=== PATIENT | female | born 1960 | race Caucasian/White ===

== ENCOUNTER 2023-12-22 12:17 | Inpatient (IN) ==
--- NOTE | 2023-12-22 12:43 | Emergency Department Note ---
History of Present Illness General Chief complaint: Swelling/Edema to Extremity Stated complaint: HAND SWOLLEN Time Seen by Provider: 12/22/23 12:23 History of Present Illness NAME: DEVANTE SIFUENTES AGE: 63 SEX: F : 1960 ARRIVES VIA: Walk-In INFORMANT: Patient ED PROVIDER(S): CYNTHIA Rick, Izabella Walter MD The patient is a pleasant well-appearing 63-year-old female who arrives to the emergency department for evaluation of left hand swelling. She reports approximately 3 to 4 days ago the hand became severely swollen and painful. She does report she has been dealing with left thumb swelling for months, however it has not extended into the remainder of the hand until now. She reports she thought she had a foreign body, however had evaluation at urgent care was given an antibiotic and anti-inflammatory. She reports she took the course of these medications, with no relief. She states she did make a pinprick hole in the medial thumb, as she thought it was infected and was able to express some purulent drainage. She denies any weakness in the hand, however she cannot perform full range of motion due to the edema. She states no history of tick bites, or gout. She is neurovascularly intact. Home Medications Medication Instructions Recorded Confirmed Type cyclobenzaprine 10 mg tablet 10 mg PO TID PRN 04/04/23 11/29/23 History venlafaxine 75 mg capsule,extended 75 mg PO DAILY 04/04/23 11/29/23 History release 24 hr trazodone 50 mg tablet 50 mg PO HS #90 tabs 05/04/23 11/29/23 Rx omeprazole magnesium 20 mg 20 mg PO DAILY 06/07/23 11/29/23 History tablet,delayed release (Prilosec OTC) pravastatin 20 mg tablet 20 mg PO DAILY #90 tabs 06/21/23 11/29/23 Rx cholecalciferol (vitamin D3) 125 125 mcg PO DAILY 08/15/23 11/29/23 History mcg (5,000 unit) capsule betamethasone valerate 0.1 % 1 applic topical BID PRN skin 10/04/23 11/29/23 Rx topical cream irritation #15 grams fluticasone propionate 100 2 inh inhalation BID #60 ea 11/01/23 11/29/23 Rx mcg/actuation blister powder for inhalation cephalexin 500 mg capsule 500 mg PO 11/07/23 11/29/23 History naproxen 500 mg tablet 500 mg PO 11/07/23 11/29/23 History omeprazole 40 mg capsule,delayed 40 mg PO DAILY #90 caps 11/24/23 11/29/23 Rx release Allergies Allergy/AdvReac Type Severity Reaction Status Date / Time rosuvastatin AdvReac Intermediate Muscle Pain Verified 11/29/23 10:48 Past Med/Surg History Problem List (Updated 12/22/23 @ 15:55 by CYNTHIA Phan) Infectious tenosynovitis (Acute) Hyperlipidemia Vocal cord polyps Tear of right biceps muscle Seasonal allergies Insomnia Anxiety Raynaud's disease, idiopathic GERD without esophagitis Tobacco dependence Hoarse voice quality Surgical History History of vocal cord polypectomy Hx of wisdom tooth extraction Hx of total hysterectomy with removal of both tubes and ovaries Family History Mother Breast cancer Uncle Prostate cancer Father Diabetes Lung cancer Denies family history of Ovarian cancer Myocardial infarction Colorectal cancer Social History Smoking Status: Current every day smoker Tobacco Type: Cigarettes Age Started Using Tobacco: 32; packs per day: 0.5; Second Hand Exposure: Yes; Hx Alcohol Use: Yes Alcohol Intake Frequency: Monthly or Less Hx Substance Use: No Preferred Language: Ivorian Communication Ability: Effective Visual Impairment: No Limitations Hearing Ability: Normal Vessel Crew Member Required: No Beliefs That Will Affect Care: None marital status: Current Living Situation: Spouse current occupational status: retired How many Children do You have: 2 Feels Safe at Home: Yes Childhood Exposure to Second-Hand Smoke: Yes Diet: regular Diet Comment: regular caffeine: Yes during the past year weight has: remained stable Dental Care, Regularly: Yes Physical Activity Frequency: Daily Seatbelt Use: always Sunscreen Use: Yes Physical Exam Vital Signs Vital Signs - 24 hr 12/22/23 12:18 12/22/23 12:18 Temperature 36.6 C Temperature Source Oral Pulse Rate 74 Respiratory Rate 18 18 Blood Pressure 131/69 Blood Pressure Mean 89 Pulse Oximetry 98 Sepsis Recent Fever Within 48 Hours No Sepsis New/Unexplained Change in Mental Status N/A Sepsis Action Taken by Nursing No Action Required VITALS: Vitals are noted on the nurse's note and reviewed by myself. Vital signs stable. GENERAL: 63-year-old female, in no acute distress, nondiaphoretic, well- developed well-nourished. SKIN: Edema with slight erythema and warmth present to he left hand extending from tips of digits to proximal forearm. No streaking present, no obvious foreign body. HEART: Regular rate and rhythm without murmurs gallops or rubs. LUNGS: Clear to auscultation bilaterally without wheezes, rales or rhonchi. No retractions or accessory muscle use. ABDOMEN: Positive bowel sounds x 4. Soft, nontender, without masses or organomegaly. Stinson sign negative. No guarding or rebound tenderness. MUSCULOSKELETAL: Edema present to the left fingers, hand, NEURO: Patient was alert and oriented to person place and time. No focal neurological deficits. Course Administered Medications Vancomycin HCl 1,250 mg/ (Sodium Chloride) 525 mls @ 200 mls/hr IV NOW ONE Stop: 12/22/23 16:03 Last Admin: 12/22/23 13:54 Dose: 200 mls/hr Documented By: DAVID Discontinued Medications Sodium Chloride (Nss) 1,000 mls @ 999 mls/hr IV .Q1H1M ONE Stop: 12/22/23 13:41 Last Infusion: 12/22/23 13:46 Dose: Infused Documented By: Admin: 12/22/23 12:52 Dose: 999 mls/hr Documented By: DAVID Cefepime HCl (Maxipime) 2,000 mg in 20 mls @ 5 mls/min IV NOW STA; Protocol Stop: 12/22/23 13:29 Last Admin: 12/22/23 13:31 Dose: 5 mls/min Documented By: DAVID Ioversol (Optiray 320 100ml) 92 ml IV ONCE ONE Stop: 12/22/23 14:48 Last Admin: 12/22/23 14:48 Dose: 92 ml Documented By: GIULIA Ketorolac Tromethamine (Ketorolac Tromethamine 15 Mg/Ml Vial) 10 mg IV NOW ONE Stop: 12/22/23 12:42 Last Admin: 12/22/23 12:52 Dose: 10 mg Documented By: [facility] Medical Decision Making Differential Diagnosis Fracture, dislocation, contusion, ligamentous injury, neurovascular, compartment syndrome, infection, foreign body, as well as other pathologies. Medical Records Attestation: I reviewed the patient's medical records. Home Medications Current Medication List: was personally reviewed by me Laboratory Data Attestation: I reviewed the patient's lab results. CBC shows no leukocytosis, with a stable hemoglobin and hematocrit, CMP is unremarkable, CRP 5.54, ESR 47, Lyme negative, uric acid negative. 12/22/23 12:50 12/22/23 12:50 Lab Results 12/22/23 Range/Units 12:50 WBC 10.62 (4.8-10.8) K/ul RBC 4.67 (4.20-5.40) M/uL Hgb 13.7 (12.0-16.0) g/dl Hct 41.3 (37.0-47.0) % MCV 88.4 (80.0-100.0) fL MCH 29.3 (25.0-34.0) pg MCHC 33.2 (32.0-36.0) g/dL RDW Std Deviation 42.2 (36.4-46.3) fL RDW Coeff of Adal 13.1 (11.5-14.5) % Plt Count 367 (130-400) K/uL MPV 8.9 L (9.4-12.4) fL Immature Gran % (Auto) 0.3 % Neut % (Auto) 71.3 % Lymph % (Auto) 19.6 % Bledsoe % (Auto) 6.9 % Eos % (Auto) 1.5 % Baso % (Auto) 0.4 % Neut # (Auto) 7.58 H (1.40-6.50) K/uL Lymph # (Auto) 2.08 (1.20-3.40) K/uL Bledsoe # (Auto) 0.73 H (0.11-0.59) K/uL Eos # (Auto) 0.16 (0.00-0.50) K/uL Baso # (Auto) 0.04 (0.00-0.20) K/uL Immature Gran # (Auto) 0.03 (0.01-0.20) K/uL ESR 47 H (0-30) mm/hr Sodium 139 (136-145) mmol/L Potassium 4.3 (3.5-5.1) mmol/L Chloride 104 (98-107) mmol/L Carbon Dioxide 30 (21-32) mmol/L Anion Gap 5 (3-11) BUN 14 (6-23) mg/dl Creatinine 0.73 (0.6-1.2) mg/dl Est Cr Clr Drug Dosing 72.8 ml/min Est GFR ( Amer) 100.2 ml/min Est GFR (Non-Af Amer) 86.4 ml/min BUN/Creatinine Ratio 19.2 (10-20) Glucose 93 (70-99(Fasting)) mg/dl Uric Acid 2.9 (2.6-7.2) mg/dl Calcium 9.9 (8.6-10.3) mg/dl Total Bilirubin 0.4 (0.2-1.0) mg/dl AST 14 (13-39) U/L ALT 13 (7-52) U/L Alkaline Phosphatase 83 (34-104) U/L C-Reactive Protein 5.54 H (0-0.5) mg/dl Total Protein 7.5 (6.0-8.3) gm/dl Albumin 4.4 (3.4-5.0) gm/dl Globulin 3.1 (2.5-4.0) gm/dl Albumin/Globulin Ratio 1.4 (0.9-2) Lyme Disease Screen Negative (Negative) Imaging Data Attestation: I personally reviewed and interpreted this imaging study as follows: My Impression: Initial x-ray interpretation per myself shows soft tissue swelling with no signs of foreign body or bony abnormality. Will await formal radiology report. Radiologist's Impression: Hand X-Ray 12/22/23 12:39 XR hand LT min 3V routine HISTORY: 63 years-old Female edema acute pain and swelling of the left hand COMPARISON: CT of same day TECHNIQUE: 4 views of the left and FINDINGS: There is moderate diffuse soft tissue swelling. Demineralized appearance of the bones with multifocal osteoarthritis which is mostly mild to moderate. No acute fracture, dislocation, osseous erosion or opaque foreign body. IMPRESSION: Soft tissue swelling without acute osseous abnormality. ACT 112: Negative or not required by law. The above report was generated using voice recognition software. It may contain grammatical, syntax or spelling errors. Electronically signed by: Richard Gan M.D. 12/22/2023 3:[address] 12/22/23 13:59 CT hand LT w con CLINICAL HISTORY: infection TECHNIQUE: Multisequence, multiplanar MR images of the left hand were obtained prior to and following administration of gadolinium contrast. COMPARISON: Comparison is made to radiographs 12/22/2023 FINDINGS: No evidence of acute fracture no erosions are seen.. No joint effusion is seen. Prominent joint fluid and enhancement is seen in the flexor tendons of the first digit, prominent fluid is also seen along the flexor tendons extending to the level of the carpal tunnel, but with no definite rim enhancement. There is a rim-enhancing cyst in the wrist measuring approximately 28 x 13 mm lying just deep to the carpal tunnel. IMPRESSION: Findings compatible with tenosynovitis, possibly infectious, of the carpal tunnel extending to the first digit flexor tendon sheath. There may be a small abscess versus outpouching of physiologic fluid deep to the carpal tunnel. Otherwise no drainable fluid collection is seen. ACT 112: Negative or not required by law. Electronically signed by: Ruben Renee M.D. 12/22/2023 3:08 PM Blood Pressure Blood Pressure Findings: Normal blood pressure MDM Narrative The patient is a pleasant well-appearing 63-year-old female who arrives to the emergency department for evaluation of the above-stated complaint. Upon examination the patient has an acute onset edema with erythema warmth of the left hand after battling swelling of the left thumb for a few months. She reports she had failed outpatient antibiotic treatment from urgent care from a few months ago. She states the hand began over the last few days, now she is having a difficult time with hide trimmer, and pain. She denies any fever, chest pain, shortness of breath. A saline lock was established, CBC, CMP, ESR, CRP, Lyme, uric acid were obtained. CBC shows no leukocytosis, with a stable hemoglobin and hematocrit, CMP is unremarkable, ESR is elevated at 47, CRP elevated at 5.54, Lyme negative, uric acid negative. X-ray imaging of the hand was performed which per my initial interpretation showed no foreign body, with soft tissue edema, no sign of osteomyelitis. CT imaging with IV contrast showed tenosynovitis, possibly infectious, of the carpal tunnel extending to the first digit flexor tendon sheath. There may also be a small abscess versus outpouching of physiological fluid deep to the carpal tunnel. Orthopedic consult with Dr. Rose was obtained who recommended admission to medicine for IV antibiotics. He requested an MRI of the hand and wrist, and agreed to evaluate the patient. Case management was contacted to facilitate admission to the hospital. Dr. Rai, from the [facility] hospitalist group agreed to accept the patient for admission. Please refer to his documentation for further patient workup and care. The patient's case was discussed with Dr. Walter, who agreed with my evaluation and treatment plan. Impression & Plan Infectious tenosynovitis Discharge Plan Visit Data Chief Complaint: Swelling/Edema to Extremity Stated Complaint: HAND SWOLLEN ED Provider: Izabella Walter ED Midlevel Provider: Mami Yeager Discharge Problem: Infectious tenosynovitis Forms Stand Alone Forms: My [facility] Prescriptions Prescriptions: No Action trazodone 50 mg tablet 50 mg PO HS Qty: 90 2RF omeprazole magnesium [Prilosec OTC] 20 mg tablet,delayed release (DR/EC) 20 mg PO DAILY pravastatin 20 mg tablet 20 mg PO DAILY Qty: 90 1RF omeprazole 40 mg capsule,delayed release(DR/EC) 40 mg PO DAILY Qty: 90 2RF naproxen 500 mg tablet 500 mg PO cephalexin 500 mg capsule 500 mg PO venlafaxine 75 mg capsule,extended release 24hr 75 mg PO DAILY cyclobenzaprine 10 mg tablet 10 mg PO TID PRN fluticasone propionate 100 mcg/actuation blister with device 2 inh inhalation BID Qty: 60 2RF cholecalciferol (vitamin D3) 125 mcg (5,000 unit) capsule 125 mcg PO DAILY betamethasone valerate 0.1 % cream 1 applic topical BID PRN (Reason: skin irritation) Qty: 15 2RF Referrals Referrals: Christian Adams CRNP [Primary Care Provider] -
[2023-12-22] MEDS: KETOROLAC TROMETHAMINE 15 MG/ML VIAL IV ONE (12:52)
[2023-12-22] MEDS: SODIUM CHLORIDE 0.9% 1,000 ML IV ONE (12:52)
[2023-12-22 13:18] LABS: Basophils # (auto) 0.04 K/uL (0.00-0.20); Basophils % (auto) 0.4 %; Eosinophils # (auto) 0.16 K/uL (0.00-0.50); Eosinophils % (auto) 1.5 %; Hematocrit (blood only) 41.3 % (37.0-47.0); Hemoglobin 13.7 g/dl (12.0-16.0); Immature Granulocytes # (auto) 0.03 K/uL (0.01-0.20); Immature Granulocytes % (auto) 0.3 %; Lymphocytes # (auto) 2.08 K/uL (1.20-3.40); Lymphocytes % (auto) 19.6 %; Mean Corpuscular Hemoglobin 29.3 pg (25.0-34.0); Mean Corpuscular Hgb Conc 33.2 g/dL (32.0-36.0); Mean Corpuscular Volume 88.4 fL (80.0-100.0); Mean Platelet Volume 8.9 fL (9.4-12.4); Monocytes # (auto) 0.73 K/uL (0.11-0.59); Monocytes % (auto) 6.9 %; Neutrophils # (auto) 7.58 K/uL (1.40-6.50); Neutrophils % (auto) 71.3 %; Platelet Count 367 K/uL (130-400); RDW Coefficient of Variation 13.1 % (11.5-14.5); RDW Standard Deviation 42.2 fL (36.4-46.3); Red Blood Count 4.67 M/uL (4.20-5.40); White Blood Count 10.62 K/ul (4.8-10.8)
[2023-12-22] MEDS ORDERED: VANCOMYCIN CONSULT ACTIVE PRN ×2 (13:26→18:07)
[2023-12-22] MEDS: CEFEPIME 2,000 MG/20 ML VIAL IV STA (13:31)
[2023-12-22 13:33] LABS: Albumin Globulin Ratio 1.4 (0.9-2); Albumin Level 4.4 gm/dl (3.4-5.0); BUN Creatinine Ratio 19.2 (10-20); Bilirubin,Total 0.4 mg/dl (0.2-1.0); C Reactive Protein 5.54 mg/dl (0-0.5); Calcium 9.9 mg/dl (8.6-10.3); Creatinine Clr Calc Pharmacy 72.8 ml/min; Est GFR (African American) 100.2 ml/min; Est GFR (Non-African American) 86.4 ml/min; Globulin 3.1 gm/dl (2.5-4.0); Potassium 4.3 mmol/L (3.5-5.1); Total Protein 7.5 gm/dl (6.0-8.3); Uric Acid 2.9 mg/dl (2.6-7.2)
[2023-12-22] MEDS: VANCOMYCIN HCL 1,250 MG in SODIUM CHLORIDE 0.9% 500 ML IV ONE (13:54)
--- NOTE | 2023-12-22 14:09 | Emergency Department Note ---
ED Visit Note I have personally seen and evaluated the patient with the GLASS DRILLER. I agree with the diagnosis and management decisions and have been personally involved in the case. Patient's left hand is concerning for a faint line of the left thumb with tracking cellulitis to the mid forearm. IV antibiotics have been initiated, CT imaging advised. Please see CYNTHIA Rick's notes for further details of the history, physical and visit. .
[2023-12-22] MEDS: OPTIRAY 320 100ml IV ONE (14:48)
--- NOTE | 2023-12-22 15:11 | CT Scan Report ---
CT hand LT w con CLINICAL HISTORY: infection TECHNIQUE: Multisequence, multiplanar MR images of the left hand were obtained prior to and followi ng administration of gadolinium contrast. COMPARISON: Comparison is made to radiographs 12/22/2023 FINDINGS: No evidence of acute fracture no erosions are seen.. No joint effusion is seen. Prominent joint fluid and enhancement is seen in the flexor tendons of the first digit, prominent fluid is also seen along the flexor tendons extending to the level of the carpal tunnel, but with no definite rim enhancement . There is a rim-enhancing cyst in the wrist measuring approximately 28 x 13 mm lying just deep to th e carpal tunnel. IMPRESSION: Findings compatible with tenosynovitis, possibly infectious, of the carpal tunnel extending to the fi rst digit flexor tendon sheath. There may be a small abscess versus outpouching of physiologic fluid deep to the carpal tunnel. Otherwise no drainable fluid collection is seen. ACT 112: Negative or not required by law. Electronically signed by: Ruben Renee M.D. 12/22/2023 3:08 PM
--- NOTE | 2023-12-22 15:17 | XRay Report ---
XR hand LT min 3V routine HISTORY: 63 years-old Female edema acute pain and swelling of the left hand COMPARISON: CT of same day TECHNIQUE: 4 views of the left and FINDINGS: There is moderate diffuse soft tissue swelling. Demineralized appearance of the bones with multifocal osteoarthritis which is mostly mild to moderate. No acute fracture, dislocation, osseous erosion or opaque foreign body. IMPRESSION: Soft tissue swelling without acute osseous abnormality. ACT 112: Negative or not required by law. The above report was generated using voice recognition software. It may contain grammatical, syntax o r spelling errors. Electronically signed by: Richard Gan M.D. 12/22/2023 3:15 PM
--- NOTE | 2023-12-22 16:31 | History & Physical Report ---
Date of Service December 22, 2023 Assessment & Plan (1) Infectious tenosynovitis: Plan: Patient presented to ED on 12/21 with complaint of left hand pain and edema. Patient previously treated outpatient with dose of keflex about 1 month ago with no improvement of symptoms. Concern for possible Foreign body. -reviewed CT scan of hand 12/21: findings consistent with tenosynovitis, possibly infectious of carpal tunnel extending to first digit flexor tendon sheath. small abscess vs outpouching of physiologic fluid deep to carpal tunnel. no drainable fluid collection seen. -reviewed XR left hand 12/21: Soft tissue swelling without acute osseous abnormality. -reviewed CBC: WBC WNL -reviewed BMP: electrolytes, kidney function WNL -reviewed inflammatory markers: CRP elevated at 5.54, ESR 47 -Continue Vancomycin q8h -Continue Cefepime 2g q8h (expanded due to concern for foreign body and pseudomonas risk) -1st line pain medication: Tylenol 500mg q4h -2nd line pain medication: Toradol 10mg q 6h -3rd line pain medication/breakthrough pain: morphine 1mg q 4h -orthopedics consulted -continue antibiotics -obtain MRI of left wrist/hand -NPO after midnight for possible surgery in AM -RCRI class I low risk -LR fluids starting at 9am on 12/22 AM CBC, BMP, CRP Plan Chronic conditions: -hyperlipidemia: continue statin -insomnia: continue trazodone -anxiety: continue venlafaxine -GERD: continue PPI -seasonal allergies: inhaler prn Disposition: admit to med-surg diet: NPO at midnight DVT prophylaxis: hold until orthopedic assessment in AM History of Present Illness Primary Care Provider: CYNTHIA Shetty This is a 63 year old female with past medical history of insomnia, anxiety, GERD, vocal cord polyps, hyperlipidemia who presented to the ED on 12/21 with complaint of left hand swelling. Patient has been having issues with her left hand for over a month now. She originally went to urgent care and was given a prescription for Keflex and told to take anti-inflammatories. She completed this and noted no improvement in her symptoms. She also states about 6 weeks ago she noticed a fluid collection on her thumb and poked it with a needle. Purulent material was drained and the puncture wound closed. She denies any cuts or scrapes to the left hand recently. She is unsure if she has a foreign body inside or not. She states she has a history of cellulitis on her right hand in the past. She denies fevers or chills. She notes pain with movement of her left hand and with flexion/extension of her fingers. She was in no discomfort at time of encounter. She denied chest pain, shortness of breath. Admitted to occasional nausea but denied vomiting. She denied any previous cardiac or pulmonary conditions. She reports she was at the hospital today for her CT scan of lungs due to smoking. She continues to smoke 3/4 packs a day. Allergies Allergy/AdvReac Type Severity Reaction Status Date / Time rosuvastatin AdvReac Intermediate Muscle Pain Verified 12/22/23 16:42 Home Medications Medication Instructions Recorded Confirmed Type cyclobenzaprine 10 mg tablet 10 mg PO TID PRN pain/muscle spasms 04/04/23 12/22/23 History venlafaxine 75 mg capsule,extended 75 mg PO DAILY 04/04/23 12/22/23 History release 24 hr trazodone 50 mg tablet 50 mg PO HS #90 tabs 05/04/23 12/22/23 Rx pravastatin 20 mg tablet 20 mg PO DAILY #90 tabs 06/21/23 12/22/23 Rx cholecalciferol (vitamin D3) 125 125 mcg PO DAILY 08/15/23 12/22/23 History mcg (5,000 unit) capsule betamethasone valerate 0.1 % 1 applic topical BID PRN skin 10/04/23 12/22/23 Rx topical cream irritation #15 grams fluticasone propionate 100 2 inh inhalation BID #60 ea 11/01/23 12/22/23 Rx mcg/actuation blister powder for inhalation omeprazole 40 mg capsule,delayed 40 mg PO DAILY #90 caps 11/24/23 12/22/23 Rx release coQ10 (ubiquinol) 100 mg capsule 100 mg PO HS 12/22/23 12/22/23 History Past Med/Surg History Problem List (Updated 12/22/23 @ 15:55 by CYNTHIA Phan) Infectious tenosynovitis (Acute) Hyperlipidemia Vocal cord polyps Tear of right biceps muscle Seasonal allergies Insomnia Anxiety Raynaud's disease, idiopathic GERD without esophagitis Tobacco dependence Hoarse voice quality Surgical History History of vocal cord polypectomy Hx of wisdom tooth extraction Hx of total hysterectomy with removal of both tubes and ovaries Family History Mother Breast cancer Uncle Prostate cancer Father Diabetes Lung cancer Denies family history of Ovarian cancer Myocardial infarction Colorectal cancer Social History Smoking Status: Current every day smoker Tobacco Type: Cigarettes Age Started Using Tobacco: 32; packs per day: 0.5; Second Hand Exposure: Yes; Hx Alcohol Use: Yes Alcohol Intake Frequency: Monthly or Less Hx Substance Use: No Preferred Language: Yakut Communication Ability: Effective Visual Impairment: No Limitations Hearing Ability: Normal Guitar Technician Required: No Beliefs That Will Affect Care: None marital status: Current Living Situation: Spouse current occupational status: retired How many Children do You have: 2 Feels Safe at Home: Yes Childhood Exposure to Second-Hand Smoke: Yes Diet: regular Diet Comment: regular caffeine: Yes during the past year weight has: remained stable Dental Care, Regularly: Yes Physical Activity Frequency: Daily Seatbelt Use: always Sunscreen Use: Yes Physical Exam 2 Constitutional: WD/WN, vitals as above Eyes: PERRL, conjunctivae normal, anicteric sclerae Respiratory: normal respiratory effort, lungs clear to auscultation Cardiovascular: RRR, no murmur, no edema Skin: left hand edema. warm and tender to touch. Results & Data Results & Data Vital Signs (Past 12 Hours) Vital Signs Temp Pulse Resp BP Pulse Ox 12/22/23 12:18 18 12/22/23 12:18 36.6 C 74 18 131/69 98 Laboratory Results 12/22/23 12:50 12/22/23 12:50 Diagnostic Findings Hand X-Ray 12/22/23 12:39 IMPRESSION: Soft tissue swelling without acute osseous abnormality. Electronically signed by: Richard Gan M.D. 12/22/2023 3:[address] 12/22/23 13:59 IMPRESSION: Findings compatible with tenosynovitis, possibly infectious, of the carpal tunnel extending to the first digit flexor tendon sheath. There may be a small abscess versus outpouching of physiologic fluid deep to the carpal tunnel. Otherwise no drainable fluid collection is seen. Electronically signed by: Ruben Renee M.D. 12/22/2023 3:08 PM Supervising Physician Co-Signing Physician Notes Patient seen and examined, chart reviewed, case discussed with Veronica Nole PA-C and I agree with the assessment and plan as above except as otherwise noted Labs and images reviewed Yaniv is a 63-year-old female with past medical history of Raynaud's, GERD, tobacco use, hyperlipidemia who presents with a worsening left hand infection suspicious for tenosynovitis. Patient initially had symptoms over 1 month ago for some thumb swelling? Foreign body at that time. Patient took an antibiotic and Aleve. Did subsequently have an area that opened and drained purulent material and then closed over. In the last 3 to 4 days and has become much more swollen and painful. Swelling has spread from the thumb into the remainder of her hand. On ER evaluation she does not have leukocytosis. CRP is elevated at 5.54, this is trended. CThand shows suspected tenosynovitis of the carpal tunnel extending into the first digit flexor tendon sheath? Small abscess versus outpouching of physiologic fluid deep to the carpal tunnel. Dr. Rose orthopedics was consulted. Recommended admission and antibiotic treatment overnight, and likely progression to the OR tomorrow morning for incision/drainage. Patient received cefepime/vancomycin in the emergency department.Seen at bedside. Swelling is present throughout the dorsal and palmar left hand and notably on the palmar aspect of the left thumb. She has mild pain on active flexion of the first through third digits, much worse pain on attempted active extension or passive extension of the first through third digits. Lungs are clear, heart rate is regular. Radial pulses intact. MRI of the hand and wrist with and without contrast ordered. Patient thinks that this may have started with a foreign body which got into her thumb. Has not had a tetanus booster to her knowledge in the last 10 years. Did not receive any tetanus booster initially. Given potential foreign body, recommended this to which patient is agreeable. Will expand typical Rocephin/vancomycin coverage to cefepime/vancomycin due to increased risk of Pseudomonas with foreign body exposure/infection. N.p.o. at midnight. Agree with above. Perioperative risk: RCRI class I low risk. Recommend proceeding to surgery as indicated. No modifiable risk factors. No underlying cardiac disease/anginal equivalents. Is able to go up stairs and walk around the block without any limiting chest pain or dyspnea. PG Care Time/CCT Total # of Minutes Spent Total Time Spent with Patient: Total time spent is greater than 50% in coordination of care (as documented) at patient's floor/unit and/or counseling patient: Coding Level of Care Code 91372 INT INP/OBS CARE 3/75MIN Diagnoses Infectious tenosynovitis M65.10
[2023-12-22] MEDS ORDERED: MoRPHine SULFATE 2 MG/ML CARP IV PRN (18:07)
[2023-12-22] MEDS: LORazepam 0.5 MG TAB PO STA (19:50)
[2023-12-22] MEDS: GADOBUTROL 65ML VIAL IV ONE (21:02)
[2023-12-22] MEDS ORDERED: VANCOMYCIN HCL 1,000 MG in SODIUM CHLORIDE 0.9% 500 ML IV SCH (21:30)
[2023-12-22] MEDS: traZODone HCL 50 MG TAB PO SCH (21:35)
[2023-12-22] MEDS: DIPHTHERIA/TETANUS TOX ADSORB VACCINE (Td) 0.5 ML SYR/VIAL IM ONE (21:35)
[2023-12-22] MEDS: VANCOMYCIN HCL 1,000 MG in SODIUM CHLORIDE 0.9% 250 ML IV SCH (21:40)
[2023-12-22] MEDS: CEFEPIME 2,000 MG in SYRINGE 0 ML IV SCH (21:40)
[2023-12-23] MEDS: KETOROLAC TROMETHAMINE 15 MG/ML VIAL IV PRN (02:15)
--- NOTE | 2023-12-23 05:15 | Magnetic Resonance Report ---
Exam(s): MRI LEFT WRIST W/WO Contrast IV Amt: 6.7CC GADAVIST EXAM: MR Left Upper Extremity Without and With Intravenous Contrast, Wrist CLINICAL HISTORY: Reason for exam: tenosynovitis. TECHNIQUE: Multiplanar magnetic resonance images of the left wrist without and with intravenous contrast. CONTRAST: Patient received 6.7CC GADAVIST of IV contrast COMPARISON: No relevant prior studies available. FINDINGS: LIGAMENTS: Scapholunate: Unremarkable. Lunotriquetral: Unremarkable. TENDONS: Flexor compartments: Unremarkable. Extensor compartments: Unremarkable. NERVES: Median: Moderate-severe synovitis throughout the carpal tunnel, correlate for carpal tunnel syndrome. Mild increased signal intensity in the median nerve. Ulnar: Unremarkable. Muscles: Unremarkable. Fluid: Unremarkable. No joint effusion. Cartilage: Unremarkable. Triangular fibrocartilage complex: Unremarkable. Bones/joints: Unremarkable. No acute fracture. Soft tissues: Mild-moderate subcutaneous edema along the dorsal, ulnar aspect of the wrist. Correlate for soft tissue contusion or bruising in this location. IMPRESSION: 1. Mild-moderate subcutaneous edema along the dorsal, ulnar aspect of the wrist. Correlate for soft tissue contusion or bruising in this location. 2. Moderate-severe synovitis throughout the carpal tunnel, correlate for carpal tunnel syndrome. Mild increased signal intensity in the median nerve. Electronically signed by: Chris Whelan MD 12/23/23 05:14 AM
[2023-12-23] MEDS ORDERED: MIDAZOLAM HCL 1 MG/ML 2ML VIAL ONE (06:45)
[2023-12-23] MEDS ORDERED: KETOROLAC 30 MG/ML VIAL ONE (06:45)
[2023-12-23] MEDS ORDERED: DEXAMETHASONE SOD INJ 4 MG/ML VIAL ONE (06:45)
[2023-12-23] MEDS ORDERED: fentaNYL citrate PF 100 MCG/2 ML VIAL ONE (06:45)
[2023-12-23] MEDS ORDERED: LIDOCAINE 2% 2 ML VIAL/AMP(20MG/ML) INFIL ONE (06:45)
[2023-12-23] MEDS ORDERED: ONDANSETRON INJ 2 MG/ML 2 ML VIAL ONE (06:45)
[2023-12-23] MEDS ORDERED: PROPOFOL IV EMULSION 10 MG/ML 20 ML VIAL IV ONE (06:45)
--- NOTE | 2023-12-23 06:54 | Anesthesiology Consultation ---
Date of Service December 23, 2023 Assessment & Plan Chart Review Chart Review: data entry technician initiated History Surgery Operation Date: 12/23/23 09:00 Proposed Procedures p Incision and Drainage Extremity - Wong Anil Rose MD Height/Weight Height: 5 ft 4 in Weight: 68 kg Allergies Allergy/AdvReac Type Severity Reaction Status Date / Time rosuvastatin AdvReac Intermediate Muscle Pain Verified 12/22/23 16:42 Medications Home Medications Medication Instructions Recorded Confirmed Last Taken cyclobenzaprine 10 mg tablet 10 mg PO TID PRN pain/muscle spasms 04/04/23 12/22/23 Unknown venlafaxine 75 mg capsule,extended 75 mg PO DAILY 04/04/23 12/22/23 12/22/23 release 24 hr trazodone 50 mg tablet 50 mg PO HS #90 tabs 05/04/23 12/22/23 12/21/23 pravastatin 20 mg tablet 20 mg PO DAILY #90 tabs 06/21/23 12/22/23 12/21/23 cholecalciferol (vitamin D3) 125 125 mcg PO DAILY 08/15/23 12/22/23 12/22/23 mcg (5,000 unit) capsule betamethasone valerate 0.1 % 1 applic topical BID PRN skin 10/04/23 12/22/23 Unknown topical cream irritation #15 grams fluticasone propionate 100 2 inh inhalation BID #60 ea 11/01/23 12/22/23 12/21/23 mcg/actuation blister powder for inhalation omeprazole 40 mg capsule,delayed 40 mg PO DAILY #90 caps 11/24/23 12/22/23 12/22/23 release coQ10 (ubiquinol) 100 mg capsule 100 mg PO HS 12/22/23 12/22/23 12/21/23 Active Medications Generic Name Dose Route Start Last Admin Trade Name Freq PRN Reason Stop Dose Admin Cefepime HCl 2,000 mg/ Syringe 20 mls @ 5 mls/min 12/22/23 21:00 12/23/23 06:00 IV 12/29/23 20:59 5 mls/min Q8H DARÍO Administration Protocol Vancomycin HCl 1,000 mg/ 270 mls @ 200 mls/hr 12/22/23 22:00 12/22/23 23:01 Sodium Chloride IV 12/29/23 21:59 Infused Q12H DARÍO Infusion Ketorolac Tromethamine 10 mg 12/22/23 18:07 12/23/23 02:15 Ketorolac Tromethamine 15 Mg/Ml Vial IV 12/27/23 18:06 10 mg Q6H PRN Administration Moderate Pain (Scale 4, 5, 6) Trazodone HCl 50 mg 12/22/23 21:00 12/22/23 21:35 Trazodone Hcl 50 Mg Tab PO 01/21/24 20:59 50 mg HS DARÍO Administration Past Family History Family History Mother Breast cancer Uncle Prostate cancer Father Diabetes Lung cancer Denies family history of Ovarian cancer Myocardial infarction Colorectal cancer Past Surgical History Surgical History History of vocal cord polypectomy Hx of wisdom tooth extraction Hx of total hysterectomy with removal of both tubes and ovaries Social History Smoking Status: Current every day smoker Smoking cigarettes per day: 3/4 a pack Do You Dip or Chew Tobacco: No Hx Alcohol Use: Yes Alcohol type: beer alcohol intake frequency: a few times a week Hx Substance Use: No Physical Exam Vital Signs Last Vital Signs Temp 98.2 F 12/22/23 21:33 Pulse 67 12/22/23 21:33 Resp 17 12/22/23 21:33 BP 130/73 12/22/23 21:33 Pulse Ox 96 12/22/23 21:33 O2 Del Method Room Air 12/22/23 21:33
[2023-12-23 07:02] LABS: Basophils # (auto) 0.06 K/uL (0.00-0.20); Basophils % (auto) 0.6 %; Eosinophils # (auto) 0.19 K/uL (0.00-0.50); Eosinophils % (auto) 1.8 %; Hematocrit (blood only) 36.2 % (37.0-47.0); Hemoglobin 12.2 g/dl (12.0-16.0); Immature Granulocytes # (auto) 0.03 K/uL (0.01-0.20); Immature Granulocytes % (auto) 0.3 %; Lymphocytes # (auto) 2.13 K/uL (1.20-3.40); Lymphocytes % (auto) 19.9 %; Mean Corpuscular Hemoglobin 29.7 pg (25.0-34.0); Mean Corpuscular Hgb Conc 33.7 g/dL (32.0-36.0); Mean Corpuscular Volume 88.1 fL (80.0-100.0); Monocytes # (auto) 0.81 K/uL (0.11-0.59); Monocytes % (auto) 7.6 %; Neutrophils # (auto) 7.49 K/uL (1.40-6.50); Neutrophils % (auto) 69.8 %; Platelet Count 326 K/uL (130-400); RDW Coefficient of Variation 12.7 % (11.5-14.5); RDW Standard Deviation 40.9 fL (36.4-46.3); Red Blood Count 4.11 M/uL (4.20-5.40); White Blood Count 10.71 K/ul (4.8-10.8)
[2023-12-23 07:39] LABS: BUN Creatinine Ratio 19.5 (10-20); C Reactive Protein 5.54 mg/dl (0-0.5); Est GFR (African American) 93.9 ml/min
--- NOTE | 2023-12-23 07:41 | Orthopedic Progress Note ---
Date of Service December 23, 2023 Assessment & Plan Admission and Anticipated Discharge Date Admission Date: December 22, 2023 Subjective Continued pain left thumb and wrist pain. Results & Data Vital Signs (Past 12 Hours) Vital Signs Temp Pulse Resp BP Pulse Ox O2 Del Method 12/22/23 21:33 36.8 C 67 17 130/73 96 Room Air
--- NOTE | 2023-12-23 07:49 | Orthopedic Consultation ---
Date of Consultation December 23, 2023 Assessment & Plan (1) Infectious tenosynovitis: IMPRESSION: Left Thumb (flexor tenosynovitis) and carpal tunnel infection PLAN: Discussed the risks and benefits of conservative and surgical options. Due to lack of improvement on IV Abx alone, recommended surgery I&D. Patient agreed and the informed consent was signed. The left UE was initialled. Has been NPO since MN. Will obtain OR cultures. Continue current IV Abx, will adjust once sensitivities are obtained and will get input from ID. Present on Admission?: Yes History of Present Illness Reason for Consultation: L hand infection Requesting Physician: Wanda Rose MD Attending Physician: Carlyle Rai MD History of Present Illness 63 yo female with 1 month h/o of thumb pain swelling treated with outpatient antibiotics. Worsened pain swelling of hand with decreased sensation since Monday. Admitted for IV antibiotics by hospitalist service. I was consulted for further evaluation and treatment. Allergies Allergy/AdvReac Type Severity Reaction Status Date / Time rosuvastatin AdvReac Intermediate Muscle Pain Verified 12/22/23 16:42 Home Medications Medication Instructions Recorded Confirmed Type cyclobenzaprine 10 mg tablet 10 mg PO TID PRN pain/muscle spasms 04/04/23 12/22/23 History venlafaxine 75 mg capsule,extended 75 mg PO DAILY 04/04/23 12/22/23 History release 24 hr trazodone 50 mg tablet 50 mg PO HS #90 tabs 05/04/23 12/22/23 Rx pravastatin 20 mg tablet 20 mg PO DAILY #90 tabs 06/21/23 12/22/23 Rx cholecalciferol (vitamin D3) 125 125 mcg PO DAILY 08/15/23 12/22/23 History mcg (5,000 unit) capsule betamethasone valerate 0.1 % 1 applic topical BID PRN skin 10/04/23 12/22/23 Rx topical cream irritation #15 grams fluticasone propionate 100 2 inh inhalation BID #60 ea 11/01/23 12/22/23 Rx mcg/actuation blister powder for inhalation omeprazole 40 mg capsule,delayed 40 mg PO DAILY #90 caps 11/24/23 12/22/23 Rx release coQ10 (ubiquinol) 100 mg capsule 100 mg PO HS 12/22/23 12/22/23 History Patient History Surgical History History of vocal cord polypectomy Hx of wisdom tooth extraction Hx of total hysterectomy with removal of both tubes and ovaries Family History Mother Breast cancer Uncle Prostate cancer Father Diabetes Lung cancer Denies family history of Ovarian cancer Myocardial infarction Colorectal cancer Social History Smoking Status: Current every day smoker Tobacco Type: Cigarettes Age Started Using Tobacco: 32; packs per day: 0.5; Cigarettes Per Day: 3/4 a pack; Second Hand Exposure: No; Do You Dip or Chew Tobacco: No; Tobacco Cessation Education Requested by Patient: No Hx Alcohol Use: Yes Alcohol type: beer Alcohol Intake Frequency: Monthly or Less Hx Substance Use: No Preferred Language: [place]an Communication Ability: Effective Visual Impairment: No Limitations Hearing Ability: Normal Binding Printer Required: No Beliefs That Will Affect Care: None marital status: Current Living Situation: Spouse current occupational status: retired How many Children do You have: 2 Other Information That Helps Us Care for You: No Feels Safe at Home: Yes Safety Concerns: Feels Safe At This Time Childhood Exposure to Second-Hand Smoke: Yes Diet: regular Diet Comment: regular caffeine: Yes during the past year weight has: remained stable Dental Care, Regularly: Yes Physical Activity Frequency: Daily Seatbelt Use: always Sunscreen Use: Yes Assistive Devices: Glasses Physical Exam Physical Exam: LUE: 4 [place] cardinal signs left thumb. Decreased sensation left median distribution. BCR < 2 sec Results & Data Vital Signs (Past 12 Hours) Vital Signs Temp Pulse Resp BP Pulse Ox O2 Del Method 12/23/23 06:58 36.9 C 82 14 110/67 94 Room Air 12/22/23 21:33 36.8 C 67 17 130/73 96 Room Air Laboratory Results Laboratory Results WBC 10.71 K/ul (4.8-10.8) 12/23/23 06:07 RBC 4.11 M/uL (4.20-5.40) L 12/23/23 06:07 Hgb 12.2 g/dl (12.0-16.0) 12/23/23 06:07 Hct 36.2 % (37.0-47.0) L 12/23/23 06:07 MCV 88.1 fL (80.0-100.0) 12/23/23 06:07 MCH 29.7 pg (25.0-34.0) 12/23/23 06:07 MCHC 33.7 g/dL (32.0-36.0) 12/23/23 06:07 RDW Std Deviation 40.9 fL (36.4-46.3) 12/23/23 06:07 RDW Coeff of Adal 12.7 % (11.5-14.5) 12/23/23 06:07 Plt Count 326 K/uL (130-400) 12/23/23 06:07 MPV 9.0 fL (9.4-12.4) L 12/23/23 06:07 Immature Gran % (Auto) 0.3 % 12/23/23 06:07 Neut % (Auto) 69.8 % 12/23/23 06:07 Lymph % (Auto) 19.9 % 12/23/23 06:07 [place] % (Auto) 7.6 % 12/23/23 06:07 Eos % (Auto) 1.8 % 12/23/23 06:07 Baso % (Auto) 0.6 % 12/23/23 06:07 Neut # (Auto) 7.49 K/uL (1.40-6.50) H 12/23/23 06:07 Lymph # (Auto) 2.13 K/uL (1.20-3.40) 12/23/23 06:07 [place] # (Auto) 0.81 K/uL (0.11-0.59) H 12/23/23 06:07 Eos # (Auto) 0.19 K/uL (0.00-0.50) 12/23/23 06:07 Baso # (Auto) 0.06 K/uL (0.00-0.20) 12/23/23 06:07 Immature Gran # (Auto) 0.03 K/uL (0.01-0.20) 12/23/23 06:07 ESR 47 mm/hr (0-30) H 12/22/23 12:50 Sodium 138 mmol/L (136-145) 12/23/23 06:07 Potassium 4.0 mmol/L (3.5-5.1) 12/23/23 06:07 Chloride 107 mmol/L (98-107) 12/23/23 06:07 Carbon Dioxide 25 mmol/L (21-32) 12/23/23 06:07 Anion Gap 6 (3-11) 12/23/23 06:07 BUN 15 mg/dl (6-23) 12/23/23 06:07 Creatinine 0.77 mg/dl (0.6-1.2) 12/23/23 06:07 Est Cr Clr Drug Dosing 69.0 ml/min 12/23/23 06:07 Est GFR ( Amer) 93.9 ml/min 12/23/23 06:07 Est GFR (Non-Af Amer) 81.0 ml/min 12/23/23 06:07 BUN/Creatinine Ratio 19.5 (10-20) 12/23/23 06:07 Glucose 101 mg/dl (70-99(Fasting)) H 12/23/23 06:07 Uric Acid 2.9 mg/dl (2.6-7.2) 12/22/23 12:50 Calcium 9.0 mg/dl (8.6-10.3) 12/23/23 06:07 Total Bilirubin 0.4 mg/dl (0.2-1.0) 12/22/23 12:50 AST 14 U/L (13-39) 12/22/23 12:50 ALT 13 U/L (7-52) 12/22/23 12:50 Alkaline Phosphatase 83 U/L (34-104) 12/22/23 12:50 C-Reactive Protein 5.54 mg/dl (0-0.5) H 12/23/23 06:07 Total Protein 7.5 gm/dl (6.0-8.3) 12/22/23 12:50 Albumin 4.4 gm/dl (3.4-5.0) 12/22/23 12:50 Globulin 3.1 gm/dl (2.5-4.0) 12/22/23 12:50 Albumin/Globulin Ratio 1.4 (0.9-2) 12/22/23 12:50 Lyme Disease Screen Negative (Negative) 12/22/23 12:50 Impressions Hand X-Ray 12/22/23 12:39 XR hand LT min 3V routine HISTORY: 63 years-old Female edema acute pain and swelling of the left hand COMPARISON: CT of same day TECHNIQUE: 4 views of the left and FINDINGS: There is moderate diffuse soft tissue swelling. Demineralized appearance of the bones with multifocal osteoarthritis which is mostly mild to moderate. No acute fracture, dislocation, osseous erosion or opaque foreign body. IMPRESSION: Soft tissue swelling without acute osseous abnormality. ACT 112: Negative or not required by law. The above report was generated using voice recognition software. It may contain grammatical, syntax or spelling errors. Electronically signed by: Richard Gan M.D. 12/22/2023 3:[address] 12/22/23 13:59 CT hand LT w con CLINICAL HISTORY: infection TECHNIQUE: Multisequence, multiplanar MR images of the left hand were obtained prior to and following administration of gadolinium contrast. COMPARISON: Comparison is made to radiographs 12/22/2023 FINDINGS: No evidence of acute fracture no erosions are seen.. No joint effusion is seen. Prominent joint fluid and enhancement is seen in the flexor tendons of the first digit, prominent fluid is also seen along the flexor tendons extending to the level of the carpal tunnel, but with no definite rim enhancement. There is a rim-enhancing cyst in the wrist measuring approximately 28 x 13 mm lying just deep to the carpal tunnel. IMPRESSION: Findings compatible with tenosynovitis, possibly infectious, of the carpal tunnel extending to the first digit flexor tendon sheath. There may be a small abscess versus outpouching of physiologic fluid deep to the carpal tunnel. Otherwise no drainable fluid collection is seen. ACT 112: Negative or not required by law. Electronically signed by: Ruben Renee M.D. 12/22/2023 3:08 PM Wrist MRI 12/22/23 17:02 Exam(s): MRI LEFT WRIST W/WO Contrast IV Amt: 6.7CC GADAVIST EXAM: MR Left Upper Extremity Without and With Intravenous Contrast, Wrist CLINICAL HISTORY: Reason for exam: tenosynovitis. TECHNIQUE: Multiplanar magnetic resonance images of the left wrist without and with intravenous contrast. CONTRAST: Patient received 6.7CC GADAVIST of IV contrast COMPARISON: No relevant prior studies available. FINDINGS: LIGAMENTS: Scapholunate: Unremarkable. Lunotriquetral: Unremarkable. TENDONS: Flexor compartments: Unremarkable. Extensor compartments: Unremarkable. NERVES: Median: Moderate-severe synovitis throughout the carpal tunnel, correlate for carpal tunnel syndrome. Mild increased signal intensity in the median nerve. Ulnar: Unremarkable. Muscles: Unremarkable. Fluid: Unremarkable. No joint effusion. Cartilage: Unremarkable. Triangular fibrocartilage complex: Unremarkable. Bones/joints: Unremarkable. No acute fracture. Soft tissues: Mild-moderate subcutaneous edema along the dorsal, ulnar aspect of the wrist. Correlate for soft tissue contusion or bruising in this location. IMPRESSION: 1. Mild-moderate subcutaneous edema along the dorsal, ulnar aspect of the wrist. Correlate for soft tissue contusion or bruising in this location. 2. Moderate-severe synovitis throughout the carpal tunnel, correlate for carpal tunnel syndrome. Mild increased signal intensity in the median nerve. Electronically signed by: Chris Whelan MD 12/23/23 05:14 AM
[2023-12-23] MEDS ORDERED: ATROPINE SULFATE 0.1 MG/ML 10ML SYR IV PRN (08:03)
[2023-12-23] MEDS ORDERED: ePHEDrine sulfate 50 MG/ML AMP IV PRN (08:03)
[2023-12-23] MEDS ORDERED: ONDANSETRON INJ 2 MG/ML 2 ML VIAL IV PRN ×2 (08:03→11:49)
[2023-12-23] MEDS ORDERED: ePHEDrine sulfate 50 MG/5 ML SYR ONE (08:46)
[2023-12-23] MEDS: LIDOCAINE 1% LOCAL 20 ML VIAL ONE (08:51)
[2023-12-23] MEDS: BUPIVACAINE/EPINEPHRINE 0.5% MPF 1:200,000 30 ML VIAL ONE (08:51)
--- NOTE | 2023-12-23 10:42 | Post Operative Brief Note ---
Immediate Post Op Note Date of Surgery December 23, 2023 Pre & Post Diagnosis Operation Date: 12/23/23 09:00 Pre-Op Diagnosis: Infectious tenosynovitis Left Thumb, Left Carpal Tunnel Infection Post-Op Diagnosis: Infectious tenosynovitis Left Thumb, Left Carpal Tunnel Infection I identified the patient and participated in the time-out.: Yes Procedure Operation Date: 12/23/23 09:00 Actual Procedures p Left Carpal tunnel release, Left Thumb A1 Norah Release, Incision and Drainage of Left thumb and wrist(Left) - Wong Rose MD Surgeon Wong Rose MD Manager Transport C SANTI [place] (No fellow avail) Estimated Blood Loss 18 Findings Consistent with Post-Op Diagnosis Fluids 1000 cc Specimens Cultures: L CT prox & deep, L Thumb; Specimen L Thumb & FPL synovium Anesthesia Type General Complications none
--- NOTE | 2023-12-23 10:43 | Operative Report ---
Post Operative Report Pre & Post Diagnosis Operation Date: 12/23/23 09:00 Pre-Op Diagnosis: Infectious tenosynovitis Left Thumb, Left Carpal Tunnel Infection Post-Op Diagnosis: Infectious tenosynovitis Left Thumb, Left Carpal Tunnel Infection I identified the patient and participated in the time-out.: Yes Procedure Operation Date: 12/23/23 09:00 Actual Procedures p Left Carpal Tunnel Release, Left Thumb A1 Jj Release, Incision and Drainage of Left thumb and wrist(Left) - Wong Rose MD Surgeon Wong Rose MD Funeral Location Manager Austin Mad[place] PA-C (No fellow avail) Estimated Blood Loss 18 Findings See Below Vin pus deep to the flexor tendon in the carpal tunnel and along the FPL tendon along the thumb and wrist. There was a sinus tract over the lateral aspect of the distal thumb that appeared to connect with FPL tendon sheath. Fluids 1000 cc Specimens Cultures: L CT prox & deep, L Thumb; Specimen L Thumb & L FPL synovium Anesthesia Type General Complications none Indications The patient has left hand and thumb infected, that did not improve with IV Antibiotics. The patient understands the risks of surgery, which include but are not limited to: bleeding, infection, re-operation, damage to nerves and arteries, continued pain and DVT. The patient understands all of these instructions and explanations, all of their questions have been satisfactorily addressed. The patient has elected to proceed with surgery and the informed consent was signed. Description of Procedure Austin Madera PA-C is assisting with positioning and closure due to fellow not available. Procedure The patient was taken to the Operating Room and placed in the supine position on the operating table with a hand table. After general anesthetic was administered a multidisciplinary time-out was performed identifying my initials on the left limb as the correct and operative limb. Antibiotics were held until as the patient is already on an regime. The left arm was prepped and draped in the usual Orthopaedic sterile fashion. The planned incisions were marked for an open carpal tunnel release with zig zag extension across the wrist ( 3 x 3 x 3 cm), a radial lateral thumb incision approximately 7 cm in length from the distal phalanx to thenar eminence, and a 2 cm longitudinal ulnar incision at the tip over the area where the initial injury occurred. The planned incisions were injected with 10 cc of a 50:50 mix of 1% Lidocaine plain and 0.5% Bupivacaine with epi. The LUE was exsanguinate via 3 minutes of gravity and the tourniquet was inflated to 250 mmHg. The planned Carpal tunnel incision was made in-line with the Ring Finger from where it crossed Caplans line in her bell crease and zig-zagged a cross the wrist. The Transverse carpal ligament was incised with a igiugig blade. A freer was used to protect the median nerve as the remainder of the transverse carpal ligament was released with the igiugig blade. There was significant adhesions to the flexor tendons and median nerve which were carefully released. There was vin pus that was released from deep under the flexor tendons. Cultures were obtained from proximal superficial tendons and distally deep. The wound was copiously irrigated. Any synovitis or fibrinous material was removed with curet and rongeur. Next our attention was drawn to the thumb and the radial incision was made through the skin and subcutaneous tissue. The radial digital nerve was identified, dissected free, and protected throughout the case. A flap was created and the tendon sheath was exposed and the A1 jj of the left thumb was identified. The A1 jj was carefully longitudinally incised. There was purulent fluid and another culture was obtained. The ulnar distal incision was created with a scalpel and there was fibrinous tissue which was removed with a curet and rongeur, which also removed what appeared to be a sinus tract. A 14 & 16 gauge catheter was used to flush the flexor tendons from proximal to distal and distal to proximal. A fresh freer was run along the FPL from the A1 jj proximally under the thenar muscles to find the FPL proximally. This was opened with scissors exposing the FPL and more synovitis. The synovitis was removed with curet, rongeur, and scissors. This portion of the FPL was irrigated with the 14 gauge catheter. Following irrigation with 3 L of normal saline and debridement there was healthy viable red beefy tissue with appropriate bleeding after releasing the tourniquet. The skin were closed with 3-0 Nylon. The wound was covered Xeroform, 4 x 4's, ABDs, sterile cast padding, a thumb spica splint, and an CLAIRE. The sponge and needle counts were correct. POST-OP: Patient will be re-admitted to the hospitalist service and continued on IV antibiotics until seen by infectious disease. I attest to the content of the Intraoperative Record and any orders documented therein. Any exceptions are noted below.
[2023-12-23] MEDS: fentaNYL citrate PF 100 MCG/2 ML VIAL IV PRN (10:54)
--- NOTE | 2023-12-23 11:04 | Operative Report ---
Post Operative Report Pre & Post Diagnosis Operation Date: 12/23/23 09:00 Pre-Op Diagnosis: Infectious tenosynovitis Left Thumb, Left Carpal Tunnel Infection Post-Op Diagnosis: Infectious tenosynovitis Left Thumb, Left Carpal Tunnel Infection I identified the patient and participated in the time-out.: Yes Procedure Operation Date: 12/23/23 09:00 Actual Procedures p Left Carpal Tunnel Release, Left Thumb A1 Norah Release, Incision and Drainage of Left thumb and wrist(Left) - Wong Anil Rose MD Surgeon Wanda Rose MD Manager Relationship Austin [place] PA-C (No fellow avail) Estimated Blood Loss 18 Findings Consistent with Post-Op Diagnosis see operative report Specimens cultures Drains none Complications none Disposition Accompanied Patient To Recovery: Yes Indications This 63 year old female presented through the ED with complaints of left hand infection, pain, and swelling. She had tried conservative management without improvement. She elected to proceed with surgical intervention after being educated about potential risks and outcomes. Preoperative imaging, including MRI, was obtained. Description of Procedure The patient was taken the operating room where she was given general anesthesia. She was prepped and draped in the usual sterile fashion. Please see Dr. Rose's operative report for specifics of the procedure. I was present for the entire case from initial patient positioning through final wound closure. Assistance was provided in tissue retraction, hemostasis, irrigation, final wound closure, and postsurgical splinting. The patient was taken to the recovery room in satisfactory condition. I attest to the content of the Intraoperative Record and any orders documented therein. Any exceptions are noted below.
--- NOTE | 2023-12-23 11:22 | Anesthesiology Progress Note ---
Date of Service December 23, 2023 Anesthesia Post Procedure Vital Signs Vital Signs: Temp Pulse Pulse Pulse Resp BP BP 12/23/23 11:10 86 14 12/23/23 11:00 86 16 12/23/23 10:50 97.0 F L 90 18 12/23/23 06:58 98.4 F 82 14 110/67 12/22/23 21:33 98.2 F 67 17 130/73 12/22/23 18:00 98.1 F 66 18 12/22/23 18:00 98.1 F 66 18 12/22/23 18:00 68 18 156/79 H 12/22/23 17:05 68 18 12/22/23 12:18 18 12/22/23 12:18 97.9 F 74 18 131/69 BP Pulse Ox O2 Del Method O2 Flow Rate 12/23/23 11:10 101/68 92 Oxymask 3 12/23/23 11:00 120/57 L 95 Oxymask 4 12/23/23 10:50 130/69 95 Oxymask 6 12/23/23 06:58 94 Room Air 12/22/23 21:33 96 Room Air 12/22/23 18:00 166/80 H 96 Room Air 12/22/23 18:00 166/80 H 94 Room Air 12/22/23 18:00 95 Room Air 12/22/23 17:05 156/79 H 95 Room Air 12/22/23 12:18 12/22/23 12:18 98 Pain Intensity Left Hand: Pain Intensity: 4 Transfer of Care Handoff Completed per policy Notes Mental Status: alert / awake / arousable and participated in evaluation Patient Amnestic to Procedure: Yes Nausea / Vomiting: adequately controlled Pain: adequately controlled Airway Patency, RR, SpO2: stable & adequate BP & HR: stable & adequate Hydration State: stable & adequate Anesthetic Complications: no major complications apparent and Pt Satisfied with anesthetic care
--- NOTE | 2023-12-23 11:28 | Pharmacy Report ---
Pharmacy PK ABX Note - Date of Service December 23, 2023 - Assessment and Plan Assessment 63 year old F receiving vancomycin/cefepime for treatment of left thumb tenosynovititis. Pertinent microbiologic data includes: wrist and thumb cultures pending. I & D today Day # 2 of antimicrobial therapy. Plan Vancomycin * Loading dose: 1250 mg IV x 1 * Maintenance dose: 1000 mg IV every 12 hours * Regimen is predicted to achieve target AUC/LAWRENCE of 400-600 mg/L.hr * Random level ordered for: 12/24/23 with AM labs Pharmacy will continue to follow and will adjust dose/frequency as necessary. Thank you. Pharmacy has transitioned to AUC monitoring for vancomycin. AUC/LAWRENCE is the preferred PK/PD target and is associated with decreased risk of nephrotoxicity compared to traditional trough targets.
[2023-12-23] MEDS ORDERED: oxyCODONE HCL IR 5 MG TAB (IMMEDIATE RELEASE) PO PRN (11:49)
[2023-12-23] MEDS ORDERED: diphenhydrAMINE 50 MG/ML VIAL IV PRN (11:49)
[2023-12-23] MEDS ORDERED: bisacodyL 10 MG SUPP PR PRN (11:49)
[2023-12-23] MEDS ORDERED: BETAMETHASONE VAL 0.1% CR 15 GM TOP PRN (11:49)
[2023-12-23] MEDS ORDERED: NALOXONE HCL 0.4 MG/1 ML VIAL/CARP IV PRN (11:49)
[2023-12-23] MEDS ORDERED: METOCLOPRAMIDE HCL INJ 5 MG/ML 2 ML VIAL IV PRN (11:49)
[2023-12-23] MEDS ORDERED: MoRPHine SULFATE 2 MG/ML CARP IV PRN (11:49)
[2023-12-23] MEDS ORDERED: ALUMINUM/MAGNESIUM SUSP 30 ML UDC PO PRN (11:49)
[2023-12-23] MEDS ORDERED: MAGNESIUM HYDROXIDE SUSP 30 ML UDC PO PRN (11:49)
[2023-12-23] MEDS: PANTOprazole 40 MG TAB PO SCH (12:01)
[2023-12-23] MEDS: SODIUM CHLORIDE 0.9% 1,000 ML IV SCH (12:01)
[2023-12-23] MEDS: PRAVASTATIN SOD 20 MG TAB PO SCH (12:01)
[2023-12-23] MEDS: VENLAFAXINE HCL XR 75 MG CAPXR PO SCH (12:01)
[2023-12-23] MEDS: FLUTICASONE FUROATE 200MCG 14 PUFFS/INHALER INH SCH (12:02)
--- NOTE | 2023-12-23 12:52 | Hospitalist Progress Note ---
Date of Service December 23, 2023 Assessment & Plan (1) Infectious tenosynovitis: Plan: Patient presented to ED on 12/21 with complaint of left hand pain and edema. Patient previously treated outpatient with dose of keflex about 1 month ago with no improvement of symptoms. Concern for possible Foreign body. -reviewed CT scan of hand 12/21: findings consistent with tenosynovitis, possibly infectious of carpal tunnel extending to first digit flexor tendon sheath. small abscess vs outpouching of physiologic fluid deep to carpal tunnel. no drainable fluid collection seen. -reviewed XR left hand 12/21: Soft tissue swelling without acute osseous abnormality. -reviewed left wrist MRI 12/22: mild-moderate subcutaneous edema along dorsal, ulnar aspect of the wrist. Correlate for soft tissue contusion/buruising. Mod- severe synovitis throughout carpal tunnel, correlate carpal tunnel syndrome. Mild increased signal intensity in medican nerve -reviewed CBC 12/22: WBC WNL -reviewed BMP 12/22: electrolytes, kidney function WNL -reviewed CRP 12/22: 5.54 -Continue Vancomycin q8h -Continue Cefepime 2g q8h (expanded due to concern for foreign body and pseudomonas risk) -1st line pain medication: Tylenol 500mg q4h -2nd line pain medication: Toradol 10mg q 6h -3rd line pain medication/breakthrough pain: morphine 1mg q 4h -orthopedics consulted -s/p left carpal tunnel release, left thumb A1 jj release, I&D of left thumb/wrist - await cultures from I&D AM CBC, BMP, CRP Plan Chronic conditions: -hyperlipidemia: continue statin -insomnia: continue trazodone -anxiety: continue venlafaxine -GERD: continue PPI -seasonal allergies: inhaler prn Disposition: admit to med-surg diet: regular dvt prophylaxis: SCD's code status: full Discussed plan of care with at bedside 12/22 Admission and Anticipated Discharge Date Admission Date: December 22, 2023 Supervising Physician Co-Signing Physician Notes The patient was not seen by me. The chart was reviewed. Case discussed with ABHINAV Jason. Agree with assessment and plan Subjective Patient seen and examined following surgery. She reported to be feeling well. She had urinating following surgery but not had a bowel movement eat. she was eating her lunch at time of encounter. She noted numbness in her left hand with minimal pain. She denied any other complaints. Physical Exam 2 Constitutional: WD/WN, vitals as above Eyes: PERRL, conjunctivae normal, anicteric sclerae Respiratory: normal respiratory effort Skin: no rashes, warm and dry Psychiatric: A+Ox3, euthymic affect Results & Data Results & Data Vital Signs (Past 12 Hours) Vital Signs Temp Pulse Pulse Resp BP BP Pulse Ox 12/23/23 11:30 80 16 114/68 94 12/23/23 11:20 36.9 C 81 14 118/68 94 12/23/23 11:10 86 14 101/68 92 12/23/23 11:00 86 16 120/57 L 95 12/23/23 10:50 36.1 C L 90 18 130/69 95 12/23/23 06:58 36.9 C 82 14 110/67 94 O2 Del Method O2 Flow Rate 12/23/23 11:30 Room Air 2 12/23/23 11:20 Nasal Cannula 2 12/23/23 11:10 Oxymask 3 12/23/23 11:00 Oxymask 4 12/23/23 10:50 Oxymask 6 12/23/23 06:58 Room Air Laboratory Results 12/23/23 06:07 12/23/23 06:07 PG Care Time/CCT Total # of Minutes Spent Total Time Spent with Patient: Total time spent is greater than 50% in coordination of care (as documented) at patient's floor/unit and/or counseling patient: Coding Level of Care Code 24182 SUB INP/OBS CARE 3/50MIN Diagnoses Infectious tenosynovitis M65.10
[2023-12-23] MEDS: LACTATED RINGER'S 1,000 ML IV SCH (16:03)
[2023-12-23] MEDS: ACETAMINOPHEN 500 MG TAB PO PRN (18:29)
[2023-12-23] MEDS: DOCUSATE SODIUM 100 MG CAP PO SCH (20:29)
[2023-12-23] MEDS: SENNA 8.6 MG TAB PO SCH (20:29)
[2023-12-24 06:14] LABS: Basophils # (auto) 0.03 K/uL (0.00-0.20); Basophils % (auto) 0.3 %; Eosinophils # (auto) 0.05 K/uL (0.00-0.50); Eosinophils % (auto) 0.4 %; Hematocrit (blood only) 32.5 % (37.0-47.0); Hemoglobin 10.7 g/dl (12.0-16.0); Immature Granulocytes # (auto) 0.04 K/uL (0.01-0.20); Immature Granulocytes % (auto) 0.4 %; Lymphocytes # (auto) 2.69 K/uL (1.20-3.40); Mean Corpuscular Hemoglobin 29.4 pg (25.0-34.0); Mean Corpuscular Hgb Conc 32.9 g/dL (32.0-36.0); Mean Corpuscular Volume 89.3 fL (80.0-100.0); Mean Platelet Volume 8.7 fL (9.4-12.4); Monocytes # (auto) 1.15 K/uL (0.11-0.59); Monocytes % (auto) 10.3 %; Neutrophils # (auto) 7.25 K/uL (1.40-6.50); Neutrophils % (auto) 64.6 %; Platelet Count 296 K/uL (130-400); RDW Coefficient of Variation 12.8 % (11.5-14.5); RDW Standard Deviation 41.7 fL (36.4-46.3); Red Blood Count 3.64 M/uL (4.20-5.40); White Blood Count 11.21 K/ul (4.8-10.8)
[2023-12-24 06:36] LABS: BUN Creatinine Ratio 15.8 (10-20); Calcium 8.6 mg/dl (8.6-10.3); Creatinine Clr Calc Pharmacy 69.9 ml/min; Est GFR (African American) 95.4 ml/min; Est GFR (Non-African American) 82.3 ml/min; Potassium 4.2 mmol/L (3.5-5.1)
[2023-12-24 08:34] LABS: C Reactive Protein 8.24 mg/dl (0-0.5)
--- NOTE | 2023-12-24 08:56 | Orthopedic Progress Note ---
Date of Service December 24, 2023 Assessment & Plan (1) Infectious tenosynovitis: Plan: POD #1 The patient was educated regarding her intraoperative findings and today's assessment. Her postsurgical dressings were partially removed and adjusted. The dorsal slab was removed. Wrist was rewrapped. She was encouraged to perform finger motion throughout the day to promote drainage and limit swelling. Continue with ice and elevation frequently to reduce pain and swelling. She will be allowed to eat today. N.p.o. after midnight in anticipation of an additional washout tomorrow. She will be reassessed in the morning to see if it is necessary. Continue the IV antibiotics. The patient was seen in conjunction with Dr. Rose, who also evaluated the patient and concurred with today's diagnosis and treatment plan. Admission and Anticipated Discharge Date Admission Date: December 22, 2023 Supervising Physician Co-Signing Physician Notes I, Dr. Rose, saw and examined the patient. I discussed the management with my PA. I reviewed my PAs note and agree with the documented findings and attest to completing the substantive portion of medical decision making and plan of care I developed. Subjective This 63-year-old female is seen today in her room. She is 1 day status post I&D of her left thumb and carpal tunnel. She states the wrist continues to be painful. It may feel slightly better than yesterday. She feels her fingers are little more awake than yesterday. She continues to have a tingling feeling in the digits. She denies any streaking. Her splint feels tight. She was noted to have a low-grade temperature this morning by nursing staff. No new complaints. Physical Exam Physical Exam: General: Well-developed, well-nourished, middle-aged female, in no acute distress. Laying in bed. Alert and oriented. Skin: Warm and dry with good turgor. No rashes. Postsurgical splint is in place on her left hand. Fingers remain edematous. No streaking on the forearm. Musculoskeletal: The patient has intact motor function to her digits. Thumb is immobilized. She is unable to make a full fist secondary to edema. She is able to actively flex and extend the digits. Wrist motion was not attempted secondary to splinting. Full elbow motion. Neurologic: Gross sensation is intact across each of the digit tips by soft touch. She notes tingling in the thumb through ring fingers, but clearly has sensation intact. Capillary refill is equal for each of the fingers. Results & Data Vital Signs (Past 12 Hours) Vital Signs Temp Pulse Resp BP Pulse Ox O2 Del Method 12/24/23 07:11 37.3 C 77 16 137/82 93 Room Air 12/24/23 03:13 36.9 C 67 18 113/64 95 Room Air 12/23/23 22:50 37.2 C 71 18 113/58 L 94 Room Air Laboratory Results CBC obtained this morning shows a white count of 11.21. H&H of 10.7 and 32.5. Platelets 296,000. PRP this morning shows normal electrolytes. BUN of 12 with creatinine 0.76. Glucose this morning 112. C-reactive protein remains elevated at 8.24.
[2023-12-24] MEDS: MULTIVITAMIN TAB PO SCH (09:20)
[2023-12-24] MEDS: CHOLECALCIFEROL 125 MCG (5,000 UNITS) TAB PO SCH (09:20)
[2023-12-24] MEDS: CYCLOBENZAPRINE HCL 10 MG TAB PO PRN (10:14)
--- NOTE | 2023-12-24 10:17 | Hospitalist Progress Note ---
Date of Service December 24, 2023 Assessment & Plan (1) Infectious tenosynovitis: Plan: Patient presented to ED on 12/21 with complaint of left hand pain and edema. Patient previously treated outpatient with dose of keflex about 1 month ago with no improvement of symptoms. Concern for possible Foreign body. -reviewed CT scan of hand 12/21: findings consistent with tenosynovitis, possibly infectious of carpal tunnel extending to first digit flexor tendon sheath. small abscess vs outpouching of physiologic fluid deep to carpal tunnel. no drainable fluid collection seen. -reviewed XR left hand 12/21: Soft tissue swelling without acute osseous abnormality. -reviewed left wrist MRI 12/22: mild-moderate subcutaneous edema along dorsal, ulnar aspect of the wrist. Correlate for soft tissue contusion/buruising. Mod- severe synovitis throughout carpal tunnel, correlate carpal tunnel syndrome. Mild increased signal intensity in medican nerve -reviewed CBC 12/23: WBC elevated at 11.21 -reviewed BMP 12/22: electrolytes, kidney function WNL -reviewed CRP 12/23: 8.24 -Continue Vancomycin q8h -Continue Cefepime 2g q8h (expanded due to concern for foreign body and pseudomonas risk) -1st line pain medication: Tylenol 500mg q4h -2nd line pain medication: Toradol 10mg q 6h -3rd line pain medication/breakthrough pain: morphine 1mg q 4h -orthopedics consulted and following. note reviewed 12/23 -s/p left carpal tunnel release, left thumb A1 jj release, I&D of left thumb/wrist - await cultures from I&D, prelim showing gram negative bacilli sensitivities pending -ice and elevation -possible return to OR 12/24 for additional washout. AM CBC, BMP, CRP Plan Chronic conditions: -hyperlipidemia: continue statin -insomnia: continue trazodone -anxiety: continue venlafaxine -GERD: continue PPI -seasonal allergies: inhaler prn Disposition: admit to med-surg diet: regular dvt prophylaxis: SCD's code status: full Admission and Anticipated Discharge Date Admission Date: December 22, 2023 Supervising Physician Co-Signing Physician Notes The patient was not seen by me. The chart was reviewed. Case discussed with ABHINAV Jason. Agree with assessment and plan Subjective Patient seen and examined this morning. patient reports pain in her left wrist/hand this AM. she has been trying to slowly move her fingers again. She denied any additional complaints aside from this. Per ortho she may require additional washout tomorrow in OR but will re- eval in the AM. Physical Exam 2 Constitutional: WD/WN, vitals as above Eyes: PERRL, conjunctivae normal, anicteric sclerae Respiratory: normal respiratory effort, lungs clear to auscultation Cardiovascular: RRR, no murmur, no edema Skin: no rashes, warm and dry Psychiatric: A+Ox3, euthymic affect Results & Data Results & Data Vital Signs (Past 12 Hours) Vital Signs Temp Pulse Resp BP Pulse Ox O2 Del Method 12/24/23 07:11 37.3 C 77 16 137/82 93 Room Air 12/24/23 03:13 36.9 C 67 18 113/64 95 Room Air 12/23/23 22:50 37.2 C 71 18 113/58 L 94 Room Air Laboratory Results 12/24/23 05:56 12/24/23 05:56 PG Care Time/CCT Total # of Minutes Spent Total Time Spent with Patient: Total time spent is greater than 50% in coordination of care (as documented) at patient's floor/unit and/or counseling patient: Coding Level of Care Code 16440 SUB INP/OBS CARE 2/35MIN Diagnoses Infectious tenosynovitis M65.10
--- NOTE | 2023-12-24 13:38 | Pharmacy Report ---
Pharmacy PK ABX Note - Date of Service December 24, 2023 - Assessment and Plan Assessment 12/23: Reviewed vancomycin level, predicting therapeutic AUC/LAWRENCE, continue current regimen. wrist and thumb cultures both growing GNBs and gram stain showing rare GPCs 12/22: 63 year old F receiving vancomycin/cefepime for treatment of left thumb tenosynovititis. Pertinent microbiologic data includes: wrist and thumb cultures pending. I & D today Day # 3 of antimicrobial therapy. Plan Vancomycin * Loading dose: 1250 mg IV x 1 * Maintenance dose: 1000 mg IV every 12 hours * Regimen is predicted to achieve target AUC/LAWRENCE of 400-600 mg/L.hr * Repeat level in 2-3 days if continued or as clinically necessary. Pharmacy will continue to follow and will adjust dose/frequency as necessary. Thank you. Pharmacy has transitioned to AUC monitoring for vancomycin. AUC/LAWRENCE is the preferred PK/PD target and is associated with decreased risk of nephrotoxicity compared to traditional trough targets.
[2023-12-24] MEDS: POLYETHYLENE (MIRALAX) 17 GM PACK PO PRN (15:16)
[2023-12-24] MEDS: POLYETHYLENE (MIRALAX) 17 GM PACK ONE (15:19)
[2023-12-25 07:45] LABS: Basophils # (auto) 0.04 K/uL (0.00-0.20); Basophils % (auto) 0.4 %; Eosinophils # (auto) 0.23 K/uL (0.00-0.50); Eosinophils % (auto) 2.4 %; Hemoglobin 11.1 g/dl (12.0-16.0); Immature Granulocytes # (auto) 0.04 K/uL (0.01-0.20); Immature Granulocytes % (auto) 0.4 %; Lymphocytes # (auto) 2.15 K/uL (1.20-3.40); Lymphocytes % (auto) 22.2 %; Mean Corpuscular Hemoglobin 28.8 pg (25.0-34.0); Mean Corpuscular Hgb Conc 32.6 g/dL (32.0-36.0); Mean Corpuscular Volume 88.1 fL (80.0-100.0); Mean Platelet Volume 8.6 fL (9.4-12.4); Monocytes # (auto) 0.96 K/uL (0.11-0.59); Monocytes % (auto) 9.9 %; Neutrophils # (auto) 6.26 K/uL (1.40-6.50); Neutrophils % (auto) 64.7 %; Platelet Count 328 K/uL (130-400); RDW Coefficient of Variation 12.8 % (11.5-14.5); RDW Standard Deviation 41.1 fL (36.4-46.3); Red Blood Count 3.86 M/uL (4.20-5.40); White Blood Count 9.68 K/ul (4.8-10.8)
[2023-12-25 08:04] LABS: BUN Creatinine Ratio 17.2 (10-20); C Reactive Protein 12.91 mg/dl (0-0.5); Calcium 8.9 mg/dl (8.6-10.3); Est GFR (African American) 108.5 ml/min; Est GFR (Non-African American) 93.6 ml/min; Potassium 3.9 mmol/L (3.5-5.1)
[2023-12-25] MEDS ORDERED: MEROPENEM 500 MG in SYRINGE 0 ML IV SCH (09:00)
--- NOTE | 2023-12-25 10:02 | Orthopedic Progress Note ---
Date of Service December 25, 2023 Assessment & Plan (1) Infectious tenosynovitis: Plan: POD #2 - Status post I&D left thumb and wrist for infection Continue elevation above heart to relieve pain and swelling. Dressings were removed today and a new splint was reapplied. Does appear to be improving and no reaccumulation of abscess at this time. Continue IV antibiotics. ID consult ordered and currently pending. Continue to follow cultures and ID recommendations. Encouraged active range of motion as the splint allows. No plans for surgical intervention today. Will resume regular diet. Will make her n.p.o. after midnight and recheck in the morning. Will obtain a thumb spica immobilizer and potentially place tomorrow if swelling improved and no further indications for surgical intervention. Patient understands and agrees with the plan. Knows to call with any problems, questions or concerns. Dr. Rose present for today's visit. Admission and Anticipated Discharge Date Admission Date: December 22, 2023 Supervising Physician Co-Signing Physician Notes I, Dr. Rose, saw and examined the patient. I discussed the management with my PA. I reviewed my PAs note and agree with the documented findings and attest to completing the substantive portion of medical decision making and plan of care I developed. Subjective Patient resting in bed. Dr. Rose present for today's visit. She states overall she feels slight improvement in the left hand. No pain without movement. She has been trying to move her fingers and is easier to bend them than straighten them. She notes some swelling in her left upper extremity. No issues with the splint. No fevers or chills. She has been tolerating a regular diet and is currently n.p.o. for possible repeat I&D today. Physical Exam Musculoskeletal: Exam of her left upper extremity: Splint and postoperative dressings were removed. Her incisions are clean, dry and intact with retained sutures. She does have edema of her left hand and fingers including the thumb. Capillary fill is brisk. Distal sensation is normal. She has discomfort with active extension and flexion of her fingers but with passive movement extension and flexion is attainable. Distal pulses are 1+. Normal sensation except slightly diminished in the thumb. Mild discomfort with range of motion of the wrist. Full range of motion of the left elbow. Forearm is supple and nontender. No evidence of reaccumulation of abscess or fluid collection. No active drainage. Mild bloody drainage on the dressings which is dried. Results & Data Vital Signs (Past 12 Hours) Vital Signs Temp Pulse Resp BP Pulse Ox O2 Del Method 12/25/23 07:57 37.2 C 70 18 144/76 H 93 Room Air Laboratory Results 12/25/23 Range/Units 07:30 WBC 9.68 (4.8-10.8) K/ul RBC 3.86 L (4.20-5.40) M/uL Hgb 11.1 L (12.0-16.0) g/dl Hct 34.0 L (37.0-47.0) % MCV 88.1 (80.0-100.0) fL MCH 28.8 (25.0-34.0) pg MCHC 32.6 (32.0-36.0) g/dL RDW Std Deviation 41.1 (36.4-46.3) fL RDW Coeff of Adal 12.8 (11.5-14.5) % Plt Count 328 (130-400) K/uL MPV 8.6 L (9.4-12.4) fL Immature Gran % (Auto) 0.4 % Neut % (Auto) 64.7 % Lymph % (Auto) 22.2 % Barnwell % (Auto) 9.9 % Eos % (Auto) 2.4 % Baso % (Auto) 0.4 % Neut # (Auto) 6.26 (1.40-6.50) K/uL Lymph # (Auto) 2.15 (1.20-3.40) K/uL Barnwell # (Auto) 0.96 H (0.11-0.59) K/uL Eos # (Auto) 0.23 (0.00-0.50) K/uL Baso # (Auto) 0.04 (0.00-0.20) K/uL Immature Gran # (Auto) 0.04 (0.01-0.20) K/uL Sodium 139 (136-145) mmol/L Potassium 3.9 (3.5-5.1) mmol/L Chloride 104 (98-107) mmol/L Carbon Dioxide 29 (21-32) mmol/L Anion Gap 6 (3-11) BUN 11 (6-23) mg/dl Creatinine 0.64 (0.6-1.2) mg/dl Est Cr Clr Drug Dosing 83.0 ml/min Est GFR ( Amer) 108.5 ml/min Est GFR (Non-Af Amer) 93.6 ml/min BUN/Creatinine Ratio 17.2 (10-20) Glucose 95 (70-99(Fasting)) mg/dl Calcium 8.9 (8.6-10.3) mg/dl C-Reactive Protein 12.91 H (0-0.5) mg/dl Microbiology 12/23/23 09:30 Gram Stain - Final Thumb,Left Aerobic and Anaerobic Culture - Preliminary Pseudomonas aeruginosa 12/23/23 09:05 Gram Stain - Final Wrist,Left Aerobic and Anaerobic Culture - Preliminary Pseudomonas aeruginosa 12/23/23 09:05 Gram Stain - Final Wrist,Left Aerobic and Anaerobic Culture - Preliminary No growth to date.
[2023-12-25] MEDS: cefTAZidime 2,000 MG in DEXTROSE 5 % MINI-B 50 ML IV SCH (10:09)
--- NOTE | 2023-12-25 14:21 | Hospitalist Progress Note ---
Date of Service December 25, 2023 Assessment & Plan (1) Infectious tenosynovitis: Plan: Patient presented to ED on 12/21 with complaint of left hand pain and edema. Patient previously treated outpatient with dose of keflex about 1 month ago with no improvement of symptoms. Concern for possible Foreign body. -CT hand: findings consistent with tenosynovitis, possibly infectious of carpal tunnel extending to first digit flexor tendon sheath. small abscess vs outpouching of physiologic fluid deep to carpal tunnel. no drainable fluid collection seen. -XR left hand: Soft tissue swelling without acute osseous abnormality. -left wrist MRI : mild-moderate subcutaneous edema along dorsal, ulnar aspect of the wrist. Correlate for soft tissue contusion/buruising. Mod-severe synovitis throughout carpal tunnel, correlate carpal tunnel syndrome. Mild increased signal intensity in median nerve Wound culture: Psuedomonas aeruginosa resistant to cefepime - stopped vanco and cefepime - switched to Meropenem (pharmacy presented patient at ID rounds, recommend extended meropenem infusion and ID consult) ID consult placed Pain control: prn Tylenol, toradol and oxycodone -orthopedics consulted and following. n -s/p left carpal tunnel release, left thumb A1 jj release, I&D of left thumb/wrist with Dr. Rose 12/22 -ice and elevation -CRP rising, reeval 12/25 with change in abx for possible return to OR AM CBC, BMP, CRP Plan Chronic conditions: -hyperlipidemia: continue statin -insomnia: continue trazodone -anxiety: continue venlafaxine -GERD: continue PPI -seasonal allergies: inhaler prn Disposition: continued inpatient stay for IV abx and ortho and ID evals dvt prophylaxis: SCD's Family updated at beside 12/24 Admission and Anticipated Discharge Date Admission Date: December 22, 2023 Supervising Physician Co-Signing Physician Notes PA Supervision Note: I did not personally see or examine the patient today, but I verified all salas points of ABHINAV Ochoa's assessment and plan with the following exceptions/additions: None Subjective Patient seen after breakfast. Doing well, does feel like she has some increasing ROM. discussed changes in abx no known bite or open wound, did have a pea sized bump she was seen at urgent care for Review of Systems Review of Systems: All systems reviewed & are unremarkable except as noted in Subjective Physical Exam Physical Exam: General: NAD, VS as above, ambulating around room Resp: normal respiratory effort, lungs clear to auscultation CV: RRR, no murmur, Abd: normal bowel sounds, non tender, no hepatosplenomegaly Extremities: Left UE in siomara wrap/split, more flexion of fingers than extension. + edema to fingers, sensation in tact Neuro: A&O x3, Skin: intact, no lesions noted Results & Data Results & Data Vital Signs (Past 12 Hours) Vital Signs Temp Pulse Resp BP Pulse Ox O2 Del Method 12/25/23 13:41 36.9 C 77 18 120/78 95 Room Air 12/25/23 07:57 37.2 C 70 18 144/76 H 93 Room Air Laboratory Results CBC, chemsitry and CRP reviewed PG Care Time/CCT Total # of Minutes Spent Total Time Spent with Patient: Total time spent is greater than 50% in coordination of care (as documented) at patient's floor/unit and/or counseling patient: Coding Level of Care Code 83680 SUB INP/OBS CARE 3/50MIN Diagnoses Infectious tenosynovitis M65.10
--- NOTE | 2023-12-25 14:48 | Infectious Disease Consult ---
Date of Consultation December 25, 2023 Assessment & Plan (1) Infectious tenosynovitis: Plan This is a 63-year-old female with past medical history of anxiety, GERD, vocal cord polyps, hyperlipidemia who presents to the ED on 12/21 with increasing left hand pain. Left thumb swelling started approximately 3 months ago and has progressively worsened to include her whole left hand and wrist. She initially went to her PCP and received anti-inflammatories. This did not help, so she presented to urgent care and was started on Keflex and continues anti- inflammatories. Approximately 3 months ago,she noted a thumb fluid collection which she poked with a needle. This drained and the puncture closed up. She denies any associated fevers, chills, sweats, nausea, vomiting, rash. She endorses pain with flexion and extension of fingers. She went to [facility] approximately 5 weeks ago. She denies any mosquito or tick bites. In the ED she is afebrile and hemodynamically stable. Labs with WBC 10.62, platelets 367, BUN 14, creatinine 0.73, CRP 5.54-->8.24-->12.91 , ESR 47 ,Lyme screen negative. Hand x-ray shows soft tissue swelling without osseous abnormality. Hand CT shows findings compatible with tenosynovitis, possibly infectious of the carpal tunnel extending to the first digit flexor tendon sheath. There may be a small abscess versus outpouching of physiologic fluid deep to the carpal tunnel. No drainable fluid collection seen. Wrist MRI shows mildmoderate subcutaneous edema along the dorsal, ulnar aspect of the wrist and moderatesevere synovitis throughout the carpal tunnel. Mild increased signal intensity in the median nerve. She was evaluated by orthopedics and underwent left carpal tunnel release, left thumb A1 jj release, incision and drainage of the left thumb and wrist. Geovany pus deep to the flexor tendon in the carpal tunnel and along the FPL tendon along the thumb and wrist was noted. There was a sinus tract over the lateral aspect of the distal thumb that appeared to connect to the FPL tendon sheath. Cultures were obtained of the left thumb and left FPL synovium. 2 intraoperative cultures are growing Pseudomonas aeruginosa with intermediate sensitivity to cefepime. She was receiving cefepime but has now been changed to ceftazidime. ID consulted for evaluation of infectious tenosynovitis.. Micro: -Left carpal tunnel culture #1 12/22: NGTD ( prelim) -Left carpal tunnel culture #2 12/22: Rare Pseudomonas aeruginosaintermediate cefepime, resistant to tobramycin, gentamicin (prelim) -Left thumb culture 12/22 rare : Rare Pseudomonas aeruginosaintermediate cefepime, resistant to tobramycin, gentamicin (prelim) Antibiotics Cefepime 12/21 - 12/23 Ceftazidime (Fortaz) 12/24ongoing #Pseudomonas flexor tenosynovitis with sinus tract and ? abscess on imaging s/p I& D 12/22 cx PSA ( I cefepime) #Left hand/ thumb SSTI -Pseudomonas Aeruginosa is S to Ceftazidime , Meropenem, Cipro/Levaquin. It is I to Cefepime. Would treat for 3-4 weeks given sinus tract. No osteo per Op report and imaging Recommendations: Can Continue Ceftazidime ( fortaz) 2g IV q8 hours. Would not teat with Levaquin / Cipro as patient already has a compromised tendon and fluoroquinolones may increase risk for tendonitis and tendon rupture Can place picc line Follow up final OR cultures Follow up 12/22 pathology Follow up Ortho as she may need to RTOR, if RTOR, follow up cultures Will need weekly Cbc with diff Bmp, lfts, on IV abx Thank you for this consult. ID will continue to follow Jaime Caruso MD, MPH Infectious Disease [facility], [facility] Call [phone] with questions. Consultation Information Consultation was provided via telemedicine using two-way real-time interactive telecommunication between the patient and the telemedicine provider. For the duration of the visit, the provider was performing the assessment from a different facility than the patient. This includesuse of bluetooth stethoscope forauscultationperformed by the telepresenter that the telemedicine provider can hear if described in the physical exam. Transportation Agent contact information: Please call [facility] Call Center . (Phone Number For Physician Use Only) After establishing a telemedicine visit, patient was: Patient was verified with two unique identifiers Time Spent with Patient: Initial => 75 min History of Present Illness Reason for Consultation: infectious flexor tenosynovitis Requesting Physician: ABHINAV Salcedo Attending Physician: Karol Ayala MD History of Present Illness This is a 63-year-old female with past medical history of anxiety, GERD, vocal cord polyps, hyperlipidemia who presents to the ED on 12/21 with increasing left hand pain. Left thumb swelling started approximately 3 months ago and has progressively worsened to include her whole left hand and wrist. She initially went to her PCP and received anti-inflammatories. This did not help, so she presented to urgent care and was started on Keflex and continues anti- inflammatories. Approximately 3 months ago,she noted a thumb fluid collection which she poked with a needle. This drained and the puncture closed up. She denies any associated fevers, chills, sweats, nausea, vomiting, rash. She endorses pain with flexion and extension of fingers. She went to [facility] approximately 5 weeks ago. She denies any mosquito or tick bites. In the ED she is afebrile and hemodynamically stable. Labs with WBC 10.62, platelets 367, BUN 14, creatinine 0.73, CRP 5.54-->8.24-->12.91 , ESR 47 ,Lyme screen negative. Hand x-ray shows soft tissue swelling without osseous abnormality. Hand CT shows findings compatible with tenosynovitis, possibly infectious of the carpal tunnel extending to the first digit flexor tendon sheath. There may be a small abscess versus outpouching of physiologic fluid deep to the carpal tunnel. No drainable fluid collection seen. Wrist MRI shows mildmoderate subcutaneous edema along the dorsal, ulnar aspect of the wrist and moderatesevere synovitis throughout the carpal tunnel. Mild increased signal intensity in the median nerve. She was evaluated by orthopedics and underwent left carpal tunnel release, left thumb A1 jj release, incision and drainage of the left thumb and wrist. Geovany pus deep to the flexor tendon in the carpal tunnel and along the FPL tendon along the thumb and wrist was noted. There was a sinus tract over the lateral aspect of the distal thumb that appeared to connect to the FPL tendon sheath. Cultures were obtained of the left thumb and left FPL synovium. 2 intraoperative cultures are growing Pseudomonas aeruginosa with intermediate sensitivity to cefepime. She was receiving cefepime but has now been changed to ceftazidime. ID consulted for evaluation of infectious tenosynovitis.. i Allergies Allergy/AdvReac Type Severity Reaction Status Date / Time rosuvastatin AdvReac Intermediate Muscle Pain Verified 12/22/23 16:42 Home Medications Medication Instructions Recorded Confirmed Type cyclobenzaprine 10 mg tablet 10 mg PO TID PRN pain/muscle spasms 04/04/23 12/22/23 History venlafaxine 75 mg capsule,extended 75 mg PO DAILY 04/04/23 12/22/23 History release 24 hr trazodone 50 mg tablet 50 mg PO HS #90 tabs 05/04/23 12/22/23 Rx pravastatin 20 mg tablet 20 mg PO DAILY #90 tabs 06/21/23 12/22/23 Rx cholecalciferol (vitamin D3) 125 125 mcg PO DAILY 08/15/23 12/22/23 History mcg (5,000 unit) capsule betamethasone valerate 0.1 % 1 applic topical BID PRN skin 10/04/23 12/22/23 Rx topical cream irritation #15 grams fluticasone propionate 100 2 inh inhalation BID #60 ea 11/01/23 12/22/23 Rx mcg/actuation blister powder for inhalation omeprazole 40 mg capsule,delayed 40 mg PO DAILY #90 caps 11/24/23 12/22/23 Rx release coQ10 (ubiquinol) 100 mg capsule 100 mg PO HS 12/22/23 12/22/23 History Patient History Surgical History History of vocal cord polypectomy Hx of wisdom tooth extraction Hx of total hysterectomy with removal of both tubes and ovaries Family History Mother Breast cancer Uncle Prostate cancer Father Diabetes Lung cancer Denies family history of Ovarian cancer Myocardial infarction Colorectal cancer Social History Smoking Status: Current every day smoker Tobacco Type: Cigarettes Age Started Using Tobacco: 32; packs per day: 0.5; Cigarettes Per Day: 3/4 a pack; Second Hand Exposure: No; Do You Dip or Chew Tobacco: No; Tobacco Cessation Education Requested by Patient: No Hx Alcohol Use: Yes Alcohol type: beer Alcohol Intake Frequency: Monthly or Less Hx Substance Use: No Preferred Language: Persian Communication Ability: Effective Visual Impairment: No Limitations Hearing Ability: Normal Quality Lead Required: No Beliefs That Will Affect Care: None marital status: Current Living Situation: Spouse current occupational status: retired How many Children do You have: 2 Other Information That Helps Us Care for You: No Feels Safe at Home: Yes Safety Concerns: Feels Safe At This Time Childhood Exposure to Second-Hand Smoke: Yes Diet: regular Diet Comment: regular caffeine: Yes during the past year weight has: remained stable Dental Care, Regularly: Yes Physical Activity Frequency: Daily Seatbelt Use: always Sunscreen Use: Yes Assistive Devices: None Review of System A 10 point ROS obtained. Pertinent positives as per HPI. Physical Exam Physical Exam: Gen NAD HEENT- Anicteric sclera Neck- supple Lungs- No increased work of breathing Abdominal- soft, NT, ND Extremities- Left hand / thumb dressed. fingers exposed with edema. Decreased ability to flex and extend. No LE edema Neuro- AAO*3 Psych- Normal mood, cooperative Results & Data Vital Signs (Past 12 Hours) Vital Signs Temp Pulse Resp BP Pulse Ox O2 Del Method 12/25/23 13:41 36.9 C 77 18 120/78 95 Room Air 12/25/23 07:57 37.2 C 70 18 144/76 H 93 Room Air Laboratory Results Laboratory Results - last 48 hr 12/24/23 12/25/23 05:56 07:30 WBC 11.21 H 9.68 RBC 3.64 L 3.86 L Hgb 10.7 L 11.1 L Hct 32.5 L 34.0 L MCV 89.3 88.1 MCH 29.4 28.8 MCHC 32.9 32.6 RDW Std Deviation 41.7 41.1 RDW Coeff of Adal 12.8 12.8 Plt Count 296 328 MPV 8.7 L 8.6 L Immature Gran % (Auto) 0.4 0.4 Neut % (Auto) 64.6 64.7 Lymph % (Auto) 24.0 22.2 Toole % (Auto) 10.3 9.9 Eos % (Auto) 0.4 2.4 Baso % (Auto) 0.3 0.4 Neut # (Auto) 7.25 H 6.26 Lymph # (Auto) 2.69 2.15 Toole # (Auto) 1.15 H 0.96 H Eos # (Auto) 0.05 0.23 Baso # (Auto) 0.03 0.04 Immature Gran # (Auto) 0.04 0.04 Sodium 139 139 Potassium 4.2 3.9 Chloride 107 104 Carbon Dioxide 28 29 Anion Gap 4 6 BUN 12 11 Creatinine 0.76 0.64 Est Cr Clr Drug Dosing 69.9 83.0 Est GFR ( Amer) 95.4 108.5 Est GFR (Non-Af Amer) 82.3 93.6 BUN/Creatinine Ratio 15.8 17.2 Glucose 112 H 95 Calcium 8.6 8.9 C-Reactive Protein 8.24 H 12.91 H Random Vancomycin 12.5 Diagnostic Findings Microbiology 12/23/23 09:30 Thumb,Left Gram Stain - Final 12/23/23 09:30 Thumb,Left Aerobic and Anaerobic Culture - Preliminary Pseudomonas aeruginosa 12/23/23 09:05 Wrist,Left Gram Stain - Final 12/23/23 09:05 Wrist,Left Aerobic and Anaerobic Culture - Preliminary Pseudomonas aeruginosa 12/23/23 09:05 Wrist,Left Gram Stain - Final 12/23/23 09:05 Wrist,Left Aerobic and Anaerobic Culture - Preliminary No growth to date. Hand X-Ray 12/22/23 12:39 XR hand LT min 3V routine HISTORY: 63 years-old Female edema acute pain and swelling of the left hand COMPARISON: CT of same day TECHNIQUE: 4 views of the left and FINDINGS: There is moderate diffuse soft tissue swelling. Demineralized appearance of the bones with multifocal osteoarthritis which is mostly mild to moderate. No acute fracture, dislocation, osseous erosion or opaque foreign body. IMPRESSION: Soft tissue swelling without acute osseous abnormality. ACT 112: Negative or not required by law. The above report was generated using voice recognition software. It may contain grammatical, syntax or spelling errors. Electronically signed by: Richard Gan M.D. 12/22/2023 3:[address] 12/22/23 13:59 CT hand LT w con CLINICAL HISTORY: infection TECHNIQUE: Multisequence, multiplanar MR images of the left hand were obtained prior to and following administration of gadolinium contrast. COMPARISON: Comparison is made to radiographs 12/22/2023 FINDINGS: No evidence of acute fracture no erosions are seen.. No joint effusion is seen. Prominent joint fluid and enhancement is seen in the flexor tendons of the first digit, prominent fluid is also seen along the flexor tendons extending to the level of the carpal tunnel, but with no definite rim enhancement. There is a rim-enhancing cyst in the wrist measuring approximately 28 x 13 mm lying just deep to the carpal tunnel. IMPRESSION: Findings compatible with tenosynovitis, possibly infectious, of the carpal tunnel extending to the first digit flexor tendon sheath. There may be a small abscess versus outpouching of physiologic fluid deep to the carpal tunnel. Otherwise no drainable fluid collection is seen. ACT 112: Negative or not required by law. Electronically signed by: Ruben Renee M.D. 12/22/2023 3:08 PM Wrist MRI 12/22/23 17:02 Exam(s): MRI LEFT WRIST W/WO Contrast IV Amt: 6.7CC GADAVIST EXAM: MR Left Upper Extremity Without and With Intravenous Contrast, Wrist CLINICAL HISTORY: Reason for exam: tenosynovitis. TECHNIQUE: Multiplanar magnetic resonance images of the left wrist without and with intravenous contrast. CONTRAST: Patient received 6.7CC GADAVIST of IV contrast COMPARISON: No relevant prior studies available. FINDINGS: LIGAMENTS: Scapholunate: Unremarkable. Lunotriquetral: Unremarkable. TENDONS: Flexor compartments: Unremarkable. Extensor compartments: Unremarkable. NERVES: Median: Moderate-severe synovitis throughout the carpal tunnel, correlate for carpal tunnel syndrome. Mild increased signal intensity in the median nerve. Ulnar: Unremarkable. Muscles: Unremarkable. Fluid: Unremarkable. No joint effusion. Cartilage: Unremarkable. Triangular fibrocartilage complex: Unremarkable. Bones/joints: Unremarkable. No acute fracture. Soft tissues: Mild-moderate subcutaneous edema along the dorsal, ulnar aspect of the wrist. Correlate for soft tissue contusion or bruising in this location. IMPRESSION: 1. Mild-moderate subcutaneous edema along the dorsal, ulnar aspect of the wrist. Correlate for soft tissue contusion or bruising in this location. 2. Moderate-severe synovitis throughout the carpal tunnel, correlate for carpal tunnel syndrome. Mild increased signal intensity in the median nerve. Electronically signed by: Chris Whelan MD 12/23/23 05:14 AM Medications Administered Home Medications Medication Instructions Recorded Confirmed Last Taken cyclobenzaprine 10 mg tablet 10 mg PO TID PRN pain/muscle spasms 04/04/23 12/22/23 Unknown venlafaxine 75 mg capsule,extended 75 mg PO DAILY 04/04/23 12/22/23 12/22/23 release 24 hr trazodone 50 mg tablet 50 mg PO HS #90 tabs 05/04/23 12/22/23 12/21/23 pravastatin 20 mg tablet 20 mg PO DAILY #90 tabs 06/21/23 12/22/23 12/21/23 cholecalciferol (vitamin D3) 125 125 mcg PO DAILY 08/15/23 12/22/23 12/22/23 mcg (5,000 unit) capsule betamethasone valerate 0.1 % 1 applic topical BID PRN skin 10/04/23 12/22/23 Unknown topical cream irritation #15 grams fluticasone propionate 100 2 inh inhalation BID #60 ea 11/01/23 12/22/23 12/21/23 mcg/actuation blister powder for inhalation omeprazole 40 mg capsule,delayed 40 mg PO DAILY #90 caps 11/24/23 12/22/23 12/22/23 release coQ10 (ubiquinol) 100 mg capsule 100 mg PO HS 12/22/23 12/22/23 12/21/23 Active Medications Generic Name Dose Route Start Last Admin Trade Name [facility] PRN Reason Stop Dose Admin Acetaminophen 500 mg 12/22/23 18:07 12/24/23 10:12 Acetaminophen 500 Mg Tab PO 01/21/24 18:06 500 mg Q4H PRN Administration Mild Pain (Scale 1, 2, 3) Cyclobenzaprine HCl 10 mg 12/23/23 11:49 12/25/23 09:23 Cyclobenzaprine Hcl 10 Mg Tab PO 01/22/24 11:48 10 mg TID PRN Administration pain/muscle spasms Docusate Sodium 100 mg 12/23/23 21:00 12/25/23 09:24 Docusate Sodium 100 Mg Cap PO 01/22/24 20:59 100 mg BID DARÍO Administration Fluticasone Furoate 1 puffs 12/23/23 09:00 12/25/23 09:23 Fluticasone Furoate 200mcg 14 Puffs/Inhaler INH 01/22/24 08:59 1 puffs DAILY DARÍO Administration Protocol Ketorolac Tromethamine 10 mg 12/22/23 18:07 12/25/23 09:23 Ketorolac Tromethamine 15 Mg/Ml Vial IV 12/27/23 18:06 10 mg Q6H PRN Administration Moderate Pain (Scale 4, 5, 6) Multivitamins 1 tab 12/24/23 09:00 12/25/23 09:24 Multivitamin Tab PO 01/23/24 08:59 1 tab QAM DARÍO Administration Pantoprazole Sodium 40 mg 12/23/23 09:00 12/25/23 09:23 Pantoprazole 40 Mg Tab PO 01/22/24 08:59 40 mg DAILY DARÍO Administration Protocol Polyethylene Glycol 17 gm 12/24/23 14:05 12/24/23 15:16 Polyethylene (Miralax) 17 Gm Pack PO 01/23/24 14:04 17 gm BID PRN Administration Constipation Pravastatin Sodium 20 mg 12/23/23 09:00 12/25/23 09:24 Pravastatin Sod 20 Mg Tab PO 01/22/24 08:59 20 mg DAILY DARÍO Administration Sennosides 17.2 mg 12/23/23 21:00 12/24/23 21:18 Senna 8.6 Mg Tab PO 01/22/24 20:59 17.2 mg HS DARÍO Administration Trazodone HCl 50 mg 12/22/23 21:00 12/24/23 21:18 Trazodone Hcl 50 Mg Tab PO 01/21/24 20:59 50 mg HS DARÍO Administration Venlafaxine HCl 75 mg 12/23/23 09:00 12/25/23 09:24 Venlafaxine Hcl Xr 75 Mg Capxr PO 01/22/24 08:59 75 mg DAILY DARÍO Administration Vitamin D 125 mcg 12/24/23 09:00 12/25/23 09:24 Cholecalciferol 125 Mcg (5,000 Units) Tab PO 01/23/24 08:59 125 mcg DAILY DARÍO Administration
[2023-12-25] MEDS: MEROPENEM 500 MG in SYRINGE (Loading Dose-Optional) IV ONE (16:42)
[2023-12-25] MEDS: MEROPENEM 2,000 MG OVER 3 HRS IV SCH (20:22)
[2023-12-26 07:32] LABS: Basophils # (auto) 0.03 K/uL (0.00-0.20); Basophils % (auto) 0.3 %; Eosinophils # (auto) 0.28 K/uL (0.00-0.50); Eosinophils % (auto) 3.2 %; Hematocrit (blood only) 34.9 % (37.0-47.0); Hemoglobin 11.5 g/dl (12.0-16.0); Immature Granulocytes # (auto) 0.03 K/uL (0.01-0.20); Immature Granulocytes % (auto) 0.3 %; Lymphocytes # (auto) 2.13 K/uL (1.20-3.40); Lymphocytes % (auto) 24.3 %; Mean Corpuscular Volume 87.9 fL (80.0-100.0); Mean Platelet Volume 8.7 fL (9.4-12.4); Monocytes # (auto) 0.73 K/uL (0.11-0.59); Monocytes % (auto) 8.3 %; Neutrophils # (auto) 5.58 K/uL (1.40-6.50); Neutrophils % (auto) 63.6 %; Platelet Count 344 K/uL (130-400); RDW Coefficient of Variation 12.6 % (11.5-14.5); RDW Standard Deviation 40.8 fL (36.4-46.3); Red Blood Count 3.97 M/uL (4.20-5.40); White Blood Count 8.78 K/ul (4.8-10.8)
[2023-12-26 07:50] LABS: BUN Creatinine Ratio 19.4 (10-20); C Reactive Protein 9.94 mg/dl (0-0.5); Creatinine Clr Calc Pharmacy 73.8 ml/min; Est GFR (African American) 101.9 ml/min; Est GFR (Non-African American) 87.9 ml/min; Potassium 4.2 mmol/L (3.5-5.1)
--- NOTE | 2023-12-26 11:39 | Infectious Disease Progress Nt ---
Date of Service December 26, 2023 Assessment & Plan (1) Infectious tenosynovitis: Plan This is a 63-year-old female with past medical history of anxiety, GERD, vocal cord polyps, hyperlipidemia who presents to the ED on 12/21 with increasing left hand pain. Left thumb swelling started approximately 3 months ago and has progressively worsened to include her whole left hand and wrist. She initially went to her PCP and received anti-inflammatories. This did not help, so she pre sented to urgent care and was started on Keflex and continues anti- inflammatories. Approximately 3 months ago,she noted a thumb fluid collection which she poked with a needle. This drained and the puncture closed up. She denies any associated fevers, chills, sweats, nausea, vomiting, rash. She endorses pain with flexion and extension of fingers. She went to [place] approximately 5 weeks ago. She denies any mosquito or tick bites. In the ED she is afebrile and hemodynamically stable. Labs with WBC 10.62, platelets 367, BUN 14, creatinine 0.73, CRP 5.54-->8.24-->12.91 , ESR 47 ,Lyme screen negative. Hand x-ray shows soft tissue swelling without osseous abnormality. Hand CT shows findings compatible with tenosynovitis, possibly infectious of the carpal tunnel extending to the first digit flexor tendon sheath. There may be a small abscess versus outpouching of physiologic fluid deep to the carpal tunnel. No drainable fluid collection seen. Wrist MRI shows mildmoderate subcutaneous edema along the dorsal, ulnar aspect of the wrist and moderatesevere synovitis throughout the carpal tunnel. Mild increased signal intensity in the median nerve. She was evaluated by orthopedics and underwent left carpal tunnel release, left thumb A1 jj release, incision and drainage of the left thumb and wrist. Geovany pus deep to the flexor tendon in the carpal tunnel and along the FPL tendon along the thumb and wrist was noted. There was a sinus tract over the lateral aspect of the distal thumb that appeared to connect to the FPL tendon sheath. Cultures were obtained of the left thumb and left FPL synovium. 2 intraoperative cultures are growing Pseudomonas aeruginosa with intermediate sensitivity to cefepime. She was receiving cefepime but has now been changed to ceftazidime-->Meropenem. ID consulted for evaluation of infectious tenosynovitis.. Micro: -Left carpal tunnel culture #1 12/22: NGTD ( prelim) -Left carpal tunnel culture #2 12/22: Rare Pseudomonas aeruginosaintermediate cefepime, resistant to tobramycin, gentamicin (prelim) -Left thumb culture 12/22 rare : Rare Pseudomonas aeruginosaintermediate cefepime, resistant to tobramycin, gentamicin (prelim) Antibiotics Cefepime 12/21 - 12/23 Ceftazidime (Fortaz) 12/24 Meropenem 12/24- ongoing #Pseudomonas flexor tenosynovitis with sinus tract and ? abscess on imaging -s/p I& D 12/22 cx PSA ( I cefepime) #Left hand/ thumb SSTI -Pseudomonas Aeruginosa is S to Ceftazidime , Meropenem, Cipro/Levaquin. It is I to Cefepime. Would treat for 3-4 weeks given sinus tract. No osteo per Op report and imaging. No plans for RTOR per ortho on 12/25. Recommendations: -Can Continue Meropenem 2g IV q8 hours. EOT --01/14 ( 3 weeks total). She may need to extend course to 4 week ( EOT 01/21) if slower clinical response. She will follow closely with ortho for need for additional surgical intervention while outpatient. She is scheduled to be seen on 01/01/24. -Would not teat with Levaquin / Cipro as patient already has a compromised tendon and fluoroquinolones may increase risk for tendonitis and tendon rupture -Pending picc line today -Follow up final OR cultures to finalization -Follow up 12/22 pathology -Will need weekly Cbc with diff Bmp, lfts, esr , crp on IV abx -Follow up with Ortho as scheduled -Establish care with local ID ID will sign off. Please call with questions D/W hospitalist, Dr Lucy Caruso MD, MPH Infectious Disease [facility], ID Division Call [phone] with questions. Admission and Anticipated Discharge Date Admission Date: December 22, 2023 Subjective Subsequent visit was provided via telemedicine using two-way real-time interactive telecommunication between the patient and the telemedicine provider. For the duration of the visit, the provider was performing the assessment from a different facility than the patient. This includesuse of bluetooth stethoscope forauscultationperformed by the telepresenter that the telemedicine provider can hear if described in the physical exam. Physiognomist contact information: Please call [facility] Call Center . (Phone Number For Physician Use Only) After establishing a telemedicine visit, patient was: Patient was verified with two unique identifiers Time Spent with Patient: Subsequent => 35 min She feels well No RTOR today Pending PICC. Tolerating Meropenem Physical Exam Physical Exam: Gen NAD HEENT- Anicteric sclera Neck- supple Lungs- No increased work of breathing Abdominal- soft, NT, ND Extremities- Left hand / thumb dressed. fingers exposed with edema. Decreased ability to flex and extend. No LE edema Neuro- AAO*3 Psych- Normal mood, cooperative Results & Data Vital Signs (Past 12 Hours) Vital Signs Temp Pulse Resp BP Pulse Ox O2 Del Method 12/26/23 07:49 36.9 C 65 16 113/72 95 Room Air Laboratory Results Short CBC 12/26/23 Range/Units 06:33 WBC 8.78 (4.8-10.8) K/ul Hgb 11.5 L (12.0-16.0) g/dl Hct 34.9 L (37.0-47.0) % Plt Count 344 (130-400) K/uL BMP 12/26/23 06:33 Sodium 140 Potassium 4.2 Chloride 102 Carbon Dioxide 31 BUN 14 Creatinine 0.72 Glucose 105 H Calcium 9.0 Diagnostic Findings Microbiology 12/23/23 09:30 Thumb,Left Gram Stain - Final 12/23/23 09:30 Thumb,Left Aerobic and Anaerobic Culture - Preliminary Pseudomonas aeruginosa 12/23/23 09:05 Wrist,Left Gram Stain - Final 12/23/23 09:05 Wrist,Left Aerobic and Anaerobic Culture - Preliminary Pseudomonas aeruginosa 12/23/23 09:05 Wrist,Left Gram Stain - Final 12/23/23 09:05 Wrist,Left Aerobic and Anaerobic Culture - Preliminary No growth to date. Medications Administered Home Medications Medication Instructions Recorded Confirmed Last Taken cyclobenzaprine 10 mg tablet 10 mg PO TID PRN pain/muscle spasms 04/04/23 12/22/23 Unknown venlafaxine 75 mg capsule,extended 75 mg PO DAILY 04/04/23 12/22/23 12/22/23 release 24 hr trazodone 50 mg tablet 50 mg PO HS #90 tabs 05/04/23 12/22/23 12/21/23 pravastatin 20 mg tablet 20 mg PO DAILY #90 tabs 06/21/23 12/22/23 12/21/23 cholecalciferol (vitamin D3) 125 125 mcg PO DAILY 08/15/23 12/22/23 12/22/23 mcg (5,000 unit) capsule betamethasone valerate 0.1 % 1 applic topical BID PRN skin 10/04/23 12/22/23 Unknown topical cream irritation #15 grams fluticasone propionate 100 2 inh inhalation BID #60 ea 11/01/23 12/22/23 12/21/23 mcg/actuation blister powder for inhalation omeprazole 40 mg capsule,delayed 40 mg PO DAILY #90 caps 11/24/23 12/22/23 12/22/23 release coQ10 (ubiquinol) 100 mg capsule 100 mg PO HS 12/22/23 12/22/23 12/21/23 Active Medications Generic Name Dose Route Start Last Admin Trade Name Treeq PRN Reason Stop Dose Admin Acetaminophen 500 mg 12/22/23 18:07 12/24/23 10:12 Acetaminophen 500 Mg Tab PO 01/21/24 18:06 500 mg Q4H PRN Administration Mild Pain (Scale 1, 2, 3) Cyclobenzaprine HCl 10 mg 12/23/23 11:49 12/26/23 09:54 Cyclobenzaprine Hcl 10 Mg Tab PO 01/22/24 11:48 10 mg TID PRN Administration pain/muscle spasms Docusate Sodium 100 mg 12/23/23 21:00 12/26/23 09:35 Docusate Sodium 100 Mg Cap PO 01/22/24 20:59 100 mg BID DARÍO Administration Fluticasone Furoate 1 puffs 12/23/23 09:00 12/26/23 09:36 Fluticasone Furoate 200mcg 14 Puffs/Inhaler INH 01/22/24 08:59 1 puffs DAILY DARÍO Administration Protocol Meropenem 2,000 mg/ Sodium 100 mls @ 33.333 mls/hr 12/25/23 18:00 12/26/23 09:46 Chloride IV 01/01/24 17:59 33.3 mls/hr Q8H DARÍO Administration Protocol Ketorolac Tromethamine 10 mg 12/22/23 18:07 12/25/23 09:23 Ketorolac Tromethamine 15 Mg/Ml Vial IV 12/27/23 18:06 10 mg Q6H PRN Administration Moderate Pain (Scale 4, 5, 6) Multivitamins 1 tab 12/24/23 09:00 12/26/23 09:35 Multivitamin Tab PO 01/23/24 08:59 1 tab QAM DARÍO Administration Pantoprazole Sodium 40 mg 12/23/23 09:00 12/26/23 09:35 Pantoprazole 40 Mg Tab PO 01/22/24 08:59 40 mg DAILY DARÍO Administration Protocol Polyethylene Glycol 17 gm 12/24/23 14:05 12/24/23 15:16 Polyethylene (Miralax) 17 Gm Pack PO 01/23/24 14:04 17 gm BID PRN Administration Constipation Pravastatin Sodium 20 mg 12/23/23 09:00 12/26/23 09:35 Pravastatin Sod 20 Mg Tab PO 01/22/24 08:59 20 mg DAILY DARÍO Administration Sennosides 17.2 mg 12/23/23 21:00 12/25/23 20:23 Senna 8.6 Mg Tab PO 01/22/24 20:59 17.2 mg HS DARÍO Administration Trazodone HCl 50 mg 12/22/23 21:00 12/25/23 20:23 Trazodone Hcl 50 Mg Tab PO 01/21/24 20:59 50 mg HS DARÍO Administration Venlafaxine HCl 75 mg 12/23/23 09:00 12/26/23 09:35 Venlafaxine Hcl Xr 75 Mg Capxr PO 01/22/24 08:59 75 mg DAILY DARÍO Administration Vitamin D 125 mcg 12/24/23 09:00 12/26/23 09:35 Cholecalciferol 125 Mcg (5,000 Units) Tab PO 01/23/24 08:59 125 mcg DAILY DARÍO Administration
--- NOTE | 2023-12-26 13:49 | Orthopedic Progress Note ---
Date of Service December 26, 2023 Assessment & Plan (1) Infectious tenosynovitis: Plan: The patient was educated regarding today's findings as well as her . Conservative care measures were discussed. Her dressings were removed and a new dressing was applied to her wrist and thumb. She was placed back in a thumb spica splint. She will leave this in place until seen in the office next week. At that point we can try transitioning her to a Velcro wrist splint. The skin of her thumb will need recheck frequently to be sure that it remains viable. Keep the hand clean and dry. Continue with ice and elevation. She does not require additional incision and drainage at this time. She may eat today. New diet was ordered. Continue IV antibiotics. She will require PICC line placement for discharge. Hopefully arrangements can be made for her to go home this week. Importance of finger motion and arm motion was discussed. Admission and Anticipated Discharge Date Admission Date: December 22, 2023 Supervising Physician Co-Signing Physician Notes I, Dr. Rose, saw and examined the patient. I discussed the management with my PA. I reviewed my PAs note and agree with the documented findings and attest to completing the substantive portion of medical decision making and plan of care I developed. Subjective This 63-year-old female is seen today in her room. She is postop day 3 from left thumb and wrist incision, drainage, and irrigation of Pseudomonas infection of her thumb and wrist. She states she is doing well. She has minimal pain. She denies any fevers or chills. She would like to know if she can go home. She has been receiving IV antibiotics. She met with infectious disease in consultation yesterday. She has been ambulatory, and states she is doing gentle motion of her digits to improve the stiffness. No new complaints. Physical Exam Physical Exam: General: Well-developed, well-nourished, middle-aged female, in no acute distress. Laying in bed. Alert and oriented. Family members are at bedside. Skin: Warm and dry with good turgor. No rashes. Significant swelling of the fingers and palm is noted. Postsurgical dressing is in place on the left wrist. Upon removal, she has healing surgical incisions on the wrist, thumb, and thenar eminence. Sutures are in place. There is scant dried blood on her inner dressings. No active bleeding at this time. The radial thumb has a patch of very pale skin approximately 5 mm x 15 mm in size. The rest of the wounds appear normal. She has some ecchymosis on the wrist proximal to her wrist incision. No erythema or streaking. There is no warmth. Musculoskeletal: She has no significant discomfort with palpation of the digits, hand, or wrist. There is limited finger motion secondary to swelling. She has no pain with passive flexion of the fingers or thumb. There is limited wrist motion secondary to swelling as well. Full supination and pronation of the forearm. Neurologic: Gross sensation is intact across the digits of the left hand by soft touch. She continues to have very limited sensation in the thumb. She states her index and long fingers have improved since yesterday. Normal sensation in the ring and little fingers. Capillary refill is equal for each of the fingers. Peripheral pulses are 2+. Results & Data Vital Signs (Past 12 Hours) Vital Signs Temp Pulse Resp BP Pulse Ox O2 Del Method 12/26/23 07:49 36.9 C 65 16 113/72 95 Room Air Laboratory Results CBC obtained this morning shows a white count of 8.78. H&H of 11.5 and 34.9. Platelets 344,000. Electrolytes this morning are normal. BUN of 14 with creatinine 0.72. Glucose today is 105.
--- NOTE | 2023-12-26 16:39 | Hospitalist Progress Note ---
Date of Service December 26, 2023 Assessment & Plan (1) Infectious tenosynovitis: Plan: Patient presented to ED on 12/21 with complaint of left hand pain and edema. Patient previously treated outpatient with dose of keflex about 1 month ago with no improvement of symptoms. Concern for possible Foreign body. -CT hand: findings consistent with tenosynovitis, possibly infectious of carpal tunnel extending to first digit flexor tendon sheath. small abscess vs outpouching of physiologic fluid deep to carpal tunnel. no drainable fluid collection seen. -XR left hand: Soft tissue swelling without acute osseous abnormality. -left wrist MRI : mild-moderate subcutaneous edema along dorsal, ulnar aspect of the wrist. Correlate for soft tissue contusion/bruising. Mod-severe synovitis throughout carpal tunnel, correlate carpal tunnel syndrome. Mild increased signal intensity in median nerve Wound culture: Pseudomonas aeruginosa resistant to cefepime - stopped vanco and cefepime - switched to Meropenem ID consult placed - continue meropenem 2 g IV every 8 hours for at least 3 weeks, may need 4 weeks depending on clinical response - follow or cultures to finalization - Weekly CBC with differential, BMP, LFTs, ESR, CRP while on IV antibiotics Pain control: prn Tylenol, toradol and oxycodone -orthopedics consulted -s/p left carpal tunnel release, left thumb A1 jj release, I&D of left thumb/wrist with Dr. Rose 12/22 -ice and elevation - no plan for OR today. has follow up appointment scheduled 12/31 case management following for IV antibiotics - PICC line placed 7/30 AM CBC, BMP, CRP Plan Chronic conditions: -hyperlipidemia: continue statin -insomnia: continue trazodone -anxiety: continue venlafaxine -GERD: continue PPI -seasonal allergies: inhaler prn Disposition: continued inpatient stay for Arranging IV antibiotics and finalized cultures dvt prophylaxis: SCD's Family updated at beside 12/24 and 12/25 Admission and Anticipated Discharge Date Admission Date: December 22, 2023 Supervising Physician Co-Signing Physician Notes PA Supervision Note: I did not personally see or examine the patient today, but I verified all salas points of ABHINAV Ochoa's assessment and plan with the following exceptions/add itions: I discussed her care with ABHINAV Orozco with orthopedics Agree with plan Subjective Patient seen ambulating around the room. present at bedside. No fevers or chills overnight. Still having swelling in her fingers but range of motion is slightly improving. No plan for OR today. Review of Systems Review of Systems: All systems reviewed & are unremarkable except as noted in Subjective Physical Exam Physical Exam: General: NAD, VS as above, ambulating around room Resp: normal respiratory effort, lungs clear to auscultation CV: RRR, no murmur, Abd: normal bowel sounds, non tender, no hepatosplenomegaly Extremities: Left UE in siomara wrap/split, more flexion of fingers than extension. + edema to fingers, sensation in tact Neuro: A&O x3, Skin: intact, no lesions noted Results & Data Results & Data Vital Signs (Past 12 Hours) Vital Signs Temp Pulse Resp BP Pulse Ox O2 Del Method 12/26/23 14:40 36.9 C 63 16 124/83 94 Room Air 12/26/23 07:49 36.9 C 65 16 113/72 95 Room Air Laboratory Results CBC, chemistry, CRP reviewed PG Care Time/CCT Total # of Minutes Spent Total Time Spent with Patient: Total time spent is greater than 50% in coordination of care (as documented) at patient's floor/unit and/or counseling patient: Coding Level of Care Code 31044 SUB INP/OBS CARE 2/35MIN Diagnoses Infectious tenosynovitis M65.10
[2023-12-27 07:05] LABS: Basophils # (auto) 0.05 K/uL (0.00-0.20); Basophils % (auto) 0.6 %; Eosinophils # (auto) 0.34 K/uL (0.00-0.50); Eosinophils % (auto) 4.4 %; Hematocrit (blood only) 36.1 % (37.0-47.0); Hemoglobin 12.3 g/dl (12.0-16.0); Immature Granulocytes # (auto) 0.02 K/uL (0.01-0.20); Immature Granulocytes % (auto) 0.3 %; Lymphocytes # (auto) 2.32 K/uL (1.20-3.40); Lymphocytes % (auto) 29.9 %; Mean Corpuscular Hemoglobin 29.2 pg (25.0-34.0); Mean Corpuscular Hgb Conc 34.1 g/dL (32.0-36.0); Mean Corpuscular Volume 85.7 fL (80.0-100.0); Mean Platelet Volume 8.5 fL (9.4-12.4); Monocytes # (auto) 0.66 K/uL (0.11-0.59); Monocytes % (auto) 8.5 %; Neutrophils # (auto) 4.37 K/uL (1.40-6.50); Neutrophils % (auto) 56.3 %; Platelet Count 386 K/uL (130-400); RDW Coefficient of Variation 12.5 % (11.5-14.5); RDW Standard Deviation 39.1 fL (36.4-46.3); Red Blood Count 4.21 M/uL (4.20-5.40); White Blood Count 7.76 K/ul (4.8-10.8)
[2023-12-27 07:57] LABS: Calcium 9.4 mg/dl (8.6-10.3); Potassium 4.1 mmol/L (3.5-5.1)
[2023-12-27 08:03] LABS: BUN Creatinine Ratio 22.9 (10-20); C Reactive Protein 6.44 mg/dl (0-0.5); Creatinine Clr Calc Pharmacy 75.9 ml/min; Est GFR (African American) 105.4 ml/min; Est GFR (Non-African American) 90.9 ml/min
--- NOTE | 2023-12-27 09:15 | Orthopedic Progress Note ---
Date of Service December 27, 2023 Assessment & Plan (1) Infectious tenosynovitis: Plan: POD #4 s/p L CTR, L thumb trigger digit release, I&D wrist & thumb, doing as well as expected, CRP is trending down, improving. Resume diet. May feed herself with MAE Keep Splint clean and dry. OOB to chair. Continue pain control. Check labs weekly: CBC, ESR, CRP. Continue IV Antibiotics: Meropenem for min 4 weeks, PICC line in place PT/OT. D/C planning for home, ok to d/c from ortho standpoint. Appreciate ID input. Continue care per Hospitalist service. Follow-up with Dr. Rose's office next week. Admission and Anticipated Discharge Date Admission Date: December 22, 2023 Subjective Feeling better, able to move my fingers more. Physical Exam Physical Exam: MAE: Improved motion of her digits. Decreased sensation left thumb, much improve d to rest of digits. BCR < 2 sec. Incisions clean, dry, intact. Mild erythema proximal wrist incision. Incisions mild tenderness. Decreased swelling hand and digits, thumb remains more swollen than other digits. Results & Data Vital Signs (Past 12 Hours) Vital Signs Temp Pulse Pulse Resp BP Pulse Ox O2 Del Method 12/27/23 07:11 36.7 C 71 17 114/65 94 Room Air 12/26/23 22:23 36.9 C 66 18 148/80 H 93 Room Air Laboratory Results 12/27/23 Range/Units 06:34 WBC 7.76 (4.8-10.8) K/ul RBC 4.21 (4.20-5.40) M/uL Hgb 12.3 (12.0-16.0) g/dl Hct 36.1 L (37.0-47.0) % MCV 85.7 (80.0-100.0) fL MCH 29.2 (25.0-34.0) pg MCHC 34.1 (32.0-36.0) g/dL RDW Std Deviation 39.1 (36.4-46.3) fL RDW Coeff of Adal 12.5 (11.5-14.5) % Plt Count 386 (130-400) K/uL MPV 8.5 L (9.4-12.4) fL Immature Gran % (Auto) 0.3 % Neut % (Auto) 56.3 % Lymph % (Auto) 29.9 % Hemphill % (Auto) 8.5 % Eos % (Auto) 4.4 % Baso % (Auto) 0.6 % Neut # (Auto) 4.37 (1.40-6.50) K/uL Lymph # (Auto) 2.32 (1.20-3.40) K/uL Hemphill # (Auto) 0.66 H (0.11-0.59) K/uL Eos # (Auto) 0.34 (0.00-0.50) K/uL Baso # (Auto) 0.05 (0.00-0.20) K/uL Immature Gran # (Auto) 0.02 (0.01-0.20) K/uL Sodium 139 (136-145) mmol/L Potassium 4.1 (3.5-5.1) mmol/L Chloride 102 (98-107) mmol/L Carbon Dioxide 31 (21-32) mmol/L Anion Gap 6 (3-11) BUN 16 (6-23) mg/dl Creatinine 0.70 (0.6-1.2) mg/dl Est Cr Clr Drug Dosing 75.9 ml/min Est GFR ( Amer) 105.4 ml/min Est GFR (Non-Af Amer) 90.9 ml/min BUN/Creatinine Ratio 22.9 H (10-20) Glucose 90 (70-99(Fasting)) mg/dl Calcium 9.4 (8.6-10.3) mg/dl C-Reactive Protein 6.44 H (0-0.5) mg/dl
--- NOTE | 2023-12-27 17:01 | Discharge Summary ---
Discharge Summary Date of Service December 27, 2023 Principal Dx & Hospital Course #1 = Principal Diagnosis (1) Infectious tenosynovitis: Patient presented to ED on 12/21 with complaint of left hand pain and edema. Patient previously treated outpatient with dose of keflex about 1 month ago with no improvement of symptoms. Concern for possible Foreign body. -CT hand: findings consistent with tenosynovitis, possibly infectious of carpal tunnel extending to first digit flexor tendon sheath. small abscess vs outpouching of physiologic fluid deep to carpal tunnel. no drainable fluid collection seen. -XR left hand: Soft tissue swelling without acute osseous abnormality. -left wrist MRI : mild-moderate subcutaneous edema along dorsal, ulnar aspect of the wrist. Correlate for soft tissue contusion/bruising. Mod-severe synovitis throughout carpal tunnel, correlate carpal tunnel syndrome. Mild increased signal intensity in median nerve Wound culture: Pseudomonas aeruginosa resistant to cefepime - stopped vanco and cefepime - switched to Meropenem ID consult placed - continue meropenem 2 g IV every 8 hours for at least 3 weeks, may need 4 weeks depending on clinical response - follow OR cultures to finalization --> meropenem should cover any anaerobics that may come up, I will personally check the cultures tomorrow - Weekly CBC with differential, BMP, LFTs, ESR, CRP while on IV antibiotics Pain control: prn Tylenol, toradol and oxycodone -orthopedics consulted -s/p left carpal tunnel release, left thumb A1 jj release, I&D of left thumb/wrist with Dr. Rose 12/22 -ice and elevation -has follow up appointment scheduled 12/31 case management following for IV antibiotics - PICC line placed 12/25 Patient has IV abx delivered, completed teaching with chart well and is able to discharge to home today Plan Chronic conditions: -hyperlipidemia: continue statin -insomnia: continue trazodone -anxiety: continue venlafaxine -GERD: continue PPI -seasonal allergies: inhaler prn Disposition: discharge to home today Family updated at beside 12/24 and 12/25, 12/26 Notes For Next Care Provider Infectious tenosynovitis - meropenem for at least 3 weeks. weekly labs. Close ortho follow up. Medication Changes From Visit meropenem q8h Admission HPI Per Admitting Provider This is a 63 year old female with past medical history of insomnia, anxiety, GERD, vocal cord polyps, hyperlipidemia who presented to the ED on 12/21 with complaint of left hand swelling. Patient has been having issues with her left hand for over a month now. She originally went to urgent care and was given a prescription for Keflex and told to take anti-inflammatories. She completed this and noted no improvement in her symptoms. She also states about 6 weeks ago she noticed a fluid collection on her thumb and poked it with a needle. Purulent material was drained and the puncture wound closed. She denies any cuts or scrapes to the left hand recently. She is unsure if she has a foreign body inside or not. She states she has a history of cellulitis on her right hand in the past. She denies fevers or chills. She notes pain with movement of her left hand and with flexion/extension of her fingers. She was in no discomfort at time of encounter. She denied chest pain, shortness of breath. Admitted to occasional nausea but denied vomiting. She denied any previous cardiac or pulmonary conditions. She reports she was at the hospital today for her CT scan of lungs due to smoking. She continues to smoke 3/4 packs a day. Discharge Exam General: NAD, VS as above, ambulating around room Resp: normal respiratory effort, lungs clear to auscultation CV: RRR, no murmur, Abd: normal bowel sounds, non tender, no hepatosplenomegaly Extremities: Left UE in claire wrap/split, more flexion of fingers than extension. + edema to fingers, sensation in tact Neuro: A&O x3, Skin: intact, no lesions noted Updated Medication List Medication Instructions Recorded Confirmed Type venlafaxine 75 mg capsule,extended 75 mg PO DAILY 04/04/23 12/28/23 History release 24 hr trazodone 50 mg tablet 50 mg PO HS #90 tabs 05/04/23 12/28/23 Rx pravastatin 20 mg tablet 20 mg PO DAILY #90 tabs 06/21/23 12/28/23 Rx cholecalciferol (vitamin D3) 125 125 mcg PO DAILY 08/15/23 12/28/23 History mcg (5,000 unit) capsule betamethasone valerate 0.1 % 1 applic topical BID PRN skin 10/04/23 12/28/23 Rx topical cream irritation #15 grams omeprazole 40 mg capsule,delayed 40 mg PO DAILY #90 caps 11/24/23 12/28/23 Rx release coQ10 (ubiquinol) 100 mg capsule 100 mg PO HS 12/22/23 12/28/23 History cyclobenzaprine 10 mg tablet 10 mg PO TID PRN pain/muscle 12/28/23 Rx spasms #30 tabs fluticasone furoate 200 1 inh inhalation BID 12/28/23 12/28/23 History mcg/actuation blister powder for inhalation (Arnuity Ellipta) Hospital Stay Data Consultations 12/22/23 15:34 ED Decision to Admit Stat 12/25/23 12:17 Consult Infectious Diseases Routine Procedures Performed Operation Date: 12/26/23 07:00 <No data on this case meets the specified criteria> Diagnostic Imagining Performed Hand X-Ray 12/22/23 12:39 XR hand LT min 3V routine HISTORY: 63 years-old Female edema acute pain and swelling of the left hand COMPARISON: CT of same day TECHNIQUE: 4 views of the left and FINDINGS: There is moderate diffuse soft tissue swelling. Demineralized appearance of the bones with multifocal osteoarthritis which is mostly mild to moderate. No acute fracture, dislocation, osseous erosion or opaque foreign body. IMPRESSION: Soft tissue swelling without acute osseous abnormality. ACT 112: Negative or not required by law. The above report was generated using voice recognition software. It may contain grammatical, syntax or spelling errors. Electronically signed by: Richard Gan M.D. 12/22/2023 3:[address] 12/22/23 13:59 CT hand LT w con CLINICAL HISTORY: infection TECHNIQUE: Multisequence, multiplanar MR images of the left hand were obtained prior to and following administration of gadolinium contrast. COMPARISON: Comparison is made to radiographs 12/22/2023 FINDINGS: No evidence of acute fracture no erosions are seen.. No joint effusion is seen. Prominent joint fluid and enhancement is seen in the flexor tendons of the first digit, prominent fluid is also seen along the flexor tendons extending to the level of the carpal tunnel, but with no definite rim enhancement. There is a rim-enhancing cyst in the wrist measuring approximately 28 x 13 mm lying just deep to the carpal tunnel. IMPRESSION: Findings compatible with tenosynovitis, possibly infectious, of the carpal tunnel extending to the first digit flexor tendon sheath. There may be a small abscess versus outpouching of physiologic fluid deep to the carpal tunnel. Otherwise no drainable fluid collection is seen. ACT 112: Negative or not required by law. Electronically signed by: Ruben Renee M.D. 12/22/2023 3:08 PM Wrist MRI 12/22/23 17:02 Exam(s): MRI LEFT WRIST W/WO Contrast IV Amt: 6.7CC GADAVIST EXAM: MR Left Upper Extremity Without and With Intravenous Contrast, Wrist CLINICAL HISTORY: Reason for exam: tenosynovitis. TECHNIQUE: Multiplanar magnetic resonance images of the left wrist without and with intravenous contrast. CONTRAST: Patient received 6.7CC GADAVIST of IV contrast COMPARISON: No relevant prior studies available. FINDINGS: LIGAMENTS: Scapholunate: Unremarkable. Lunotriquetral: Unremarkable. TENDONS: Flexor compartments: Unremarkable. Extensor compartments: Unremarkable. NERVES: Median: Moderate-severe synovitis throughout the carpal tunnel, correlate for carpal tunnel syndrome. Mild increased signal intensity in the median nerve. Ulnar: Unremarkable. Muscles: Unremarkable. Fluid: Unremarkable. No joint effusion. Cartilage: Unremarkable. Triangular fibrocartilage complex: Unremarkable. Bones/joints: Unremarkable. No acute fracture. Soft tissues: Mild-moderate subcutaneous edema along the dorsal, ulnar aspect of the wrist. Correlate for soft tissue contusion or bruising in this location. IMPRESSION: 1. Mild-moderate subcutaneous edema along the dorsal, ulnar aspect of the wrist. Correlate for soft tissue contusion or bruising in this location. 2. Moderate-severe synovitis throughout the carpal tunnel, correlate for carpal tunnel syndrome. Mild increased signal intensity in the median nerve. Electronically signed by: Chris Whelan MD 12/23/23 05:14 AM Pending Results Patient Have Any Pending Studies at Discharge: No Discharge Instructions Given to Patient (Per Discharging Provider) Mrs. Staples, Milad were hospitalized after worsening infection of the left hand, found to be tenosynovitis. You had this drained with Dr. Rose, recommendations from the ortho team are down below. You will be continued on IV antibiotics (meropenem) for 3-4 weeks. You will have weekly follow up with ortho to determine how long the antibiotics need to be continued. You can use ibuprofen and tylenol at home for pain control, these are over the counter follow the instructions on the bottle. You can continue senna and colace for bowel regiment if your bowels are not regular. These also can be purchased over the counter. No changes to your home medications. . Follow-up appointments: Make an appointment with your primary care physician within one week of discharge. A copy of this summary will be sent to them. Every time you see your primary care physician, or any other doctor, bring your medication list, and a list of questions. CONTACT YOUR PRIMARY CARE PROVIDER if you experience any of the following: Shortness of breath or difficulty breathing Fevers or chills - worsening redness or swelling (call ortho) Feeling tired with normal activity or experiencing dizziness or fainting Difficulty following your treatment plan, or difficulty taking medications CALL 911 OR GO TO THE EMERGENCY DEPARTMENT if you experience any of the following: Severe abdominal pain or nausea/vomiting Severe chest pain, or chest pain that radiates (moves) to your jaw or arm Sudden, severe shortness of breath or difficulty breathing Thank you for allowing us to participate in your care. Melisa Ochoa PA-C Total Time Total Time Spent Total Time Spent (In Minutes): Time spend day of discharge 40 minutes including direct patient care, medication reconciliation, documentation, review of labs and images, and coordination of care. Supervising Physician Co-Signing Physician Notes PA Supervision Note: I personally saw and examined the patient. I verified all salas points and agree with ABHINAV Ochoa with the following exceptions and/or additions: S-Pt feeling well, no complaints, hand swelling improving, anxious for discharge O- Vitals reviewed Gen: [AAOx3, NAD] HEENT: [anicteric sclerae, EOMI] CV: [RRR no mgr nl S1S2] Pulm: [CTAB no wcr] Ext: [left hand and arm in dressing and CLAIRE wrap] A/P-63 yo female here with left hand infectious tenosynovitis with Pseudomonas. Improving with surgical washout and IV meropenem to continue for 3-4 weeks, weekly labs while on abx Discharge to home Coding Level of Care Code 73201 INP/OBS DISCH >30 MIN Diagnoses Infectious tenosynovitis M65.10
== END 2023-12-27 19:50 | disposition home health service (06) | DRG 513 ==
LOC: ED 12:17 → 3W 16:56 → SUATTDRO 16:56 → 3W 18:00